=== PATIENT | female | born 1995 | race Caucasian/White ===

== ENCOUNTER 2021-01-17 10:10 | Inpatient (IN) ==
[2021-01-17 11:10] LABS: Creatinine Urine Random 27.7 mg/dl; Protein Creatinine Ratio Urine 0.4 (0-0.2); Total Protein Urine Random 10.2 mg/dl (0-11.9)
[2021-01-17] MEDS ORDERED: METOCLOPRAMIDE HCL 10 MG TABLET PO ONE (11:12)
[2021-01-17 11:21] LABS: Basophils # (auto) 0.01 K/uL (0-0.2); Basophils % (auto) 0.1 %; Eosinophils # (auto) 0.01 K/uL (0-0.5); Eosinophils % (auto) 0.1 %; Hematocrit (blood only) 38.5 % (37-47); Hemoglobin 13.5 g/dL (12.0-16.0); Immature Granulocytes # (auto) 0.04 K/uL (0.00-0.02); Immature Granulocytes % (auto) 0.4 %; Lymphocytes # (auto) 1.49 K/uL (1.2-3.4); Lymphocytes % (auto) 13.5 %; Mean Corpuscular Hemoglobin 30.7 pg (25-34); Mean Corpuscular Hgb Conc 35.1 g/dL (32-36); Mean Corpuscular Volume 87.5 fL (80-100); Mean Platelet Volume 11.3 fL (7.4-10.4); Monocytes # (auto) 0.93 K/uL (0.11-0.59); Monocytes % (auto) 8.4 %; Neutrophils # (auto) 8.53 K/uL (1.4-6.5); Neutrophils % (auto) 77.5 %; Platelet Count 115 K/uL (130-400); RDW Standard Deviation 45.2 fL (36.4-46.3); White Blood Count 11.01 K/uL (4.8-10.8)
--- NOTE | 2021-01-17 11:22 | History & Physical Report ---
Date of Service January 17, 2021 Assessment & Plan (1) Elevated blood pressure affecting in third trimester, antepartum: Plan: 25yo here for BP with 3 instances elevated BP in past week with 2 day headache. -ordered CBC, CMP, Urine Protein/Creatinine ratio -continuous monitor of BP -monitor status with tocometer and US History of Present Illness Chief Complaint: BP monitoring Primary Care Provider: Gavin Hubbard 25yo Female at 37 2/7 weeks presents to hospital for BP monitoring. PMH kuldeep jean marie. She has been complaining of a headache for past 2 days, described as constant pulsating at her forehead rated 5/10, tylenol rest do not help light makes it worse feels different from her previous migraines, which have not occured since started. She also describes black spots in her vision when moving to sit or stand. She notes pain in her RUQ but states that has been ongoing through her and is unchanged. She notes swelling b/l of hands and feet ongoing throughout , unchanged. She states she feels movement, denies any bloody discharge, denies contractions. 2 days ago she was seen in clinic, found elevated BP at 172/108 repeat 140/100 sent to hospital CMP and CBC normal sent home. Today her checked her BP found 128/29, was seen at clinic who sent them to hospital for monitoring. Her UA was negative for protein. Allergies Allergy/AdvReac Type Severity Reaction Status Date / Time latex Allergy Rash Verified 01/17/21 09:19 Home Medications Medication Instructions Recorded Confirmed Type prenat.vits,dariela,lpi-yrif-etibh 1 tab PO DAILY 11/24/19 01/17/21 History omeprazole magnesium 20 mg 20 mg PO DAILY 01/15/21 01/17/21 History tablet,delayed release (Prilosec OTC) acetaminophen 500 mg capsule 1,000 mg PO Q8 PRN 01/17/21 01/17/21 History Patient History Surgical History (Updated 01/15/21 @ 10:58 by Kayla Fernandez RN) H/O removal of cyst on tongue as a child H/O wisdom tooth extraction (~02/04/17) Family History Mother Kidney stones Grandmother (Paternal) Hypertension Social History (Updated 01/15/21 @ 11:01 by Kayla Fernandez RN) Smoking Status: Never smoker Hx Alcohol Use: No Hx Substance Use: No Preferred Language: Kinyarwanda Communication Ability: Effective Visual Impairment: No Limitations Hearing Ability: Normal Payment Analyst Required: No Beliefs That Will Affect Care: None marital status: marital status details: Jack (25) [phone] Current Living Situation: Spouse Current Living Situation Comment: Lives with and dog current occupational status: employed current occupation: [employer] Other Information That Helps Us Care for You: No Feels Safe at Home: Yes Safety Concerns: Feels Safe At This Time caffeine: No Dental Care, Regularly: Yes Do you think of yourself as: straight/heterosexual Gender Identity: Female Assistive Devices: None OB History Review of Systems positive headache, changes in vision with position light sensitivity, swelling of hands and feet negative fever chills dizziness LOC unsteady gait nausea vomitting diarrhea constipation SOB palpitations chest pain dysuria hematuria vaginal discharge, rash Physical Exam Physical Exam: General: well appearing, age appropriate cooperative Heart: RRR, +s1 s2, no murmurs/rubs/gallops Lungs: cta b/l, no wheezes/rales rhonchi Extremities: edema b/l of hands and feet Results & Data ([facility]) Vital Signs (Past 12 Hours) Vital Signs Temp Pulse Resp BP 01/17/21 10:46 111 H 133/82 01/17/21 10:41 114 H 127/86 01/17/21 10:38 104 H 133/90 01/17/21 10:31 37 C 108 H 20 138/84 01/17/21 10:27 114 H 141/84 H 01/17/21 10:21 107 H 128/83 01/17/21 10:16 100 H 125/82 Laboratory Results 01/17/21 Range/Units 10:05 Ur Random Creatinine 27.7 mg/dl U Random Total Protein 10.2 (0-11.9) mg/dl Protein/Creatinin Ratio 0.4 H (0-0.2) Monitoring External Monitor FHR 140's moderate variability reassuring Tocodynamometer occasional contractions every 4-7min Supervising Physician Co-Signing Physician Notes Resident Physician Supervision Note: I was present with Dr. Mendoza during the history and exam. I discussed the case with the resident and agree with the findings and plan as documented in the note. Any exceptions or clarifications are listed here: 25 y/o G1 at 37 2/7 wga presented to L&D from clinic for BP monitoring. Had mild range BPs in clnic on Thursday and was sent to L&D for BP monitoring where labs were normal, BP initially mild but also normalized as well. Presented to clinic today for BP check and was normal however noted mild PATEL and stated that her BP had diastolic of 90s this AM so was recommended for evaluation. On L&D, again notes mild PATEL and intermittent floaters but nothing currently. Denies cp, sob, RUQ/epigastric pain. +FM; denies regular ctx, LOF, VB. BP initially normal, did then have 2 mild range BPs. EFM 135/mod/+accel/-decel, toco irreg. CBC was normal though platelets slightly downtrended to 115 from 130, CMP wnl however UP:C was 0.4. Given UPC and mild range BPs >4hrs apart, pt would meet criteria for pre-eclampsia w/o SF and so recommended for delivery. BSUS demonstrated vertex position, SVE c/l/h. Reglan was given for PTAEL with minimal improvement. Will allow small meal as this may help with PATEL and will order fioricet. Plan to start IOL with tee bulb but if cannot place will use cytotec. Pt and amenable to plan. Ample time given for questions, answered to apparent satisfaction Documented By: Lillie Nichols MD Resident Activity Tracking Resident Involvement: Resident Care Provided Care Provided: OB Delivery
[2021-01-17 11:47] LABS: Albumin Level 2.8 gm/dl (3.4-5.0); BUN Creatinine Ratio 16.6 (10-20); Calcium 8.5 mg/dl (8.5-10.1); Creatinine Clr Calc Pharmacy 139.9 ml/min; Est GFR (African American) 149.5 ml/min; Potassium 3.9 mmol/L (3.5-5.1)
[2021-01-17 11:50] LABS: Albumin Globulin Ratio 0.7 (0.9-2); Bilirubin,Total 0.5 mg/dl (0.2-1); Globulin 3.9 gm/dl (2.5-4.0); Total Protein 6.7 gm/dl (6.4-8.2)
[2021-01-17] MEDS ORDERED: OXYTOCIN 30 UNITS/500 ML BAG IV PRN ×2 (12:48→14:27)
[2021-01-17] MEDS ORDERED: BUTALBITAL/ACETAMIN/CAFFEINE TAB PO ONE (13:00)
--- NOTE | 2021-01-17 14:31 | Labor Progress Brief Note ---
Date of Service January 17, 2021 Subjective PATEL improving after food and fioricet. Discussed tee bulb placement. Pt also notes that she is feeling her ctx more Assessment & Plan (1) Pre-eclampsia: Plan: 25 y/o G1 at 37 2/7 wga admitted w/ new dx of pre-eclampsia w/o SF VSS, BPs ok now Fetus cat 1 Labor - 35cc tee bulb placed after verbal consent obtained following review of risks vs benefits. Will start pit as well GBS neg Epidural PRN Admission and Anticipated Discharge Date Admission Date: January 17, 2021 Physical Exam Genitourinary: OB Exam Abdomen: + vertex Manual OB Exam: + cervical dilation 1 cm, + cervical effacement 50% and + station high OB Exam Monitor Tracing: + external FHT monitor used, + external uterine monitor used (q4) and + category I (135/mod/+accel/-decel) Results & Data ([facility]) Vital Signs (Past 12 Hours) Vital Signs Temp Pulse Resp BP 01/17/21 14:13 117 H 117/77 01/17/21 12:07 85 133/83 01/17/21 11:52 97 H 128/83 01/17/21 11:37 94 H 132/84 01/17/21 11:23 88 20 128/80 01/17/21 11:07 93 H 125/78 01/17/21 10:46 111 H 133/82 01/17/21 10:41 114 H 127/86 01/17/21 10:38 104 H 133/90 01/17/21 10:31 98.6 F 108 H 18 138/84 01/17/21 10:27 114 H 141/84 H 01/17/21 10:21 107 H 128/83 01/17/21 10:16 100 H 125/82 01/17/21 10:10 108 H 20 129/81 Coding Level of Care Code None Diagnoses Pre-eclampsia O14.90
[2021-01-17] MEDS: LACTATED RINGER'S 1,000 ML IV PRN ×2 (14:33→22:11)
[2021-01-17 19:41] LABS: Hematocrit (blood only) 38.5 % (37-47); Hemoglobin 13.5 g/dL (12.0-16.0); Mean Corpuscular Hemoglobin 30.8 pg (25-34); Mean Corpuscular Hgb Conc 35.1 g/dL (32-36); Mean Corpuscular Volume 87.9 fL (80-100); Mean Platelet Volume 11.7 fL (7.4-10.4); Platelet Count 111 K/uL (130-400); RDW Standard Deviation 45.6 fL (36.4-46.3); Red Blood Count 4.38 M/uL (4.2-5.4); White Blood Count 11.69 K/uL (4.8-10.8)
--- NOTE | 2021-01-17 20:41 | Labor Progress Brief Note ---
Date of Service January 17, 2021 Subjective Noting back pain, some cramping Assessment & Plan (1) Pre-eclampsia: Plan: 25 y/o G1 at 37 2/7 wga admitted w/ pre-eclampsia w/o SF VSS Fetus cat 1 Labor - tee bulb in place, continue pit GBS neg Epidural PRN Admission and Anticipated Discharge Date Admission Date: January 17, 2021 Physical Exam Genitourinary: Manual OB Exam: + cervical dilation (2-3 with tee bulb), + cervical effacement 50% and + station high OB Exam Monitor Tracing: + external FHT monitor used, + external uterine monitor used (q4) and + category I (145/mod/+accel/-decel) Results & Data ([facility]) Vital Signs (Past 12 Hours) Vital Signs Temp Pulse Resp BP 01/17/21 19:59 92 H 131/78 01/17/21 19:15 98.4 F 18 01/17/21 18:59 105 H 123/83 01/17/21 18:01 104 H 20 128/84 01/17/21 17:00 100 H 20 121/76 01/17/21 15:50 101 H 20 146/68 H 01/17/21 15:33 93 H 129/83 01/17/21 15:18 100 H 129/74 01/17/21 15:03 101 H 133/76 01/17/21 14:48 98.6 F 90 20 131/74 01/17/21 14:13 117 H 117/77 01/17/21 12:07 85 133/83 01/17/21 11:52 97 H 128/83 01/17/21 11:37 94 H 132/84 01/17/21 11:23 88 20 128/80 01/17/21 11:07 93 H 125/78 01/17/21 10:46 111 H 133/82 01/17/21 10:41 114 H 127/86 01/17/21 10:38 104 H 133/90 01/17/21 10:31 98.6 F 108 H 18 138/84 01/17/21 10:27 114 H 141/84 H 01/17/21 10:21 107 H 128/83 01/17/21 10:16 100 H 125/82 01/17/21 10:10 108 H 20 129/81 Coding Level of Care Code None Diagnoses Pre-eclampsia O14.90
[2021-01-17] MEDS ORDERED: ACETAMINOPHEN 500 MG TAB PO STA (23:08)
[2021-01-17] MEDS ORDERED: ACETAMINOPHEN 500 MG TAB ONE (23:11)
[2021-01-18] MEDS ORDERED: Nursing to Pharmacy Communication SCH (03:30)
[2021-01-18] MEDS ORDERED: LIDOCAINE 1% LOCAL 20 ML VIAL ONE (03:47)
[2021-01-18] MEDS: LACTATED RINGER'S 1,000 ML IV PRN ×3 (06:16→11:39)
--- NOTE | 2021-01-18 07:00 | Labor Progress Brief Note ---
Date of Service January 18, 2021 Subjective Bouncing on ball helping w/ back pain, does note contractions Assessment & Plan (1) Pre-eclampsia: Plan: 25 y/o G1 at 37 3/7 wga admitted w/ pre-eclampsia w/o SF VSS Fetus cat 1 Labor - continue pit, s/p tee bulb GBS neg Epidural PRN Admission and Anticipated Discharge Date Admission Date: January 17, 2021 Physical Exam Genitourinary: Manual OB Exam: + cervical dilation 3 cm, + cervical effacement 80% and + station -2 OB Exam Monitor Tracing: + external FHT monitor used, + external uterine monitor used (q3) and + category I (140/mod/+accel/-decel) Results & Data ([facility]) Vital Signs (Past 12 Hours) Vital Signs Temp Pulse Resp BP 01/18/21 06:35 18 01/18/21 05:52 100 H 129/82 01/18/21 05:03 101 H 121/80 01/18/21 04:55 18 01/18/21 03:59 70 133/78 01/18/21 03:23 93 H 123/83 01/18/21 02:22 99.0 F 18 01/18/21 02:15 18 01/18/21 02:00 95 H 131/73 01/18/21 01:01 81 138/78 01/18/21 00:00 87 120/67 01/17/21 23:15 98.6 F 18 01/17/21 23:00 88 127/79 01/17/21 21:59 96 H 122/80 01/17/21 21:41 100 H 130/81 01/17/21 19:59 92 H 131/78 01/17/21 19:15 98.4 F 18 Coding Level of Care Code None Diagnoses Pre-eclampsia O14.90
--- NOTE | 2021-01-18 09:18 | Labor Progress Brief Note ---
Date of Service January 18, 2021 Subjective Patient note pain increased with ctx, last ctx 8/10 pain. no rom. no vb. Assessment & Plan (1) Pre-eclampsia: (2) Encounter for induction of labor: Plan: good cx change. offered arom but given her pain she would like epidural. ok to plan arom after comfortable from epidural. fhts categ 1. patient aware i am taking over care. preeclampsia without severe features is her dx. Admission and Anticipated Discharge Date Admission Date: January 17, 2021 Physical Exam Constitutional: WD/WN, vitals as above Genitourinary: Manual OB Exam: + cervical dilation 5 cm, + cervical effacement 90% and + station -2 OB Exam Monitor Tracing: + external FHT monitor used, + external uterine monitor used (q2), + category I and + normal FHT variability pit at 18 Results & Data ([facility]) Vital Signs (Past 12 Hours) Vital Signs Temp Pulse Resp BP 01/18/21 08:28 94 H 20 131/85 01/18/21 07:02 98.4 F 88 20 133/75 01/18/21 06:35 18 01/18/21 05:52 100 H 129/82 01/18/21 05:03 101 H 121/80 01/18/21 04:55 18 01/18/21 03:59 70 133/78 01/18/21 03:23 93 H 123/83 01/18/21 02:22 99.0 F 18 01/18/21 02:15 18 01/18/21 02:00 95 H 131/73 01/18/21 01:01 81 138/78 01/18/21 00:00 87 120/67 01/17/21 23:15 98.6 F 18 01/17/21 23:00 88 127/79 01/17/21 21:59 96 H 122/80 01/17/21 21:41 100 H 130/81 Coding Level of Care Code None Diagnoses Pre-eclampsia O14.90 Encounter for induction of labor Z34.90
[2021-01-18] MEDS ORDERED: ePHEDrine sulfate 50 MG/ML AMP ONE (09:19)
[2021-01-18] MEDS ORDERED: SODIUM CHLORIDE 0.9% INJ 10 ML VIAL ONE (09:19)
[2021-01-18] MEDS ORDERED: fentaNYL 2MCG/ML ROPIVACAINE 1.25MG/ML 100 ML BAG EPI ONE (09:20)
[2021-01-18] MEDS ORDERED: BUPIVACAINE 0.25% 30 ML VIAL ONE (09:20)
[2021-01-18] MEDS ORDERED: fentaNYL citrate 100 MCG/2 ML VIAL ONE (09:20)
[2021-01-18] MEDS ORDERED: diphenhydrAMINE 50 MG/ML VIAL IV PRN (09:47)
[2021-01-18] MEDS ORDERED: fentaNYL 2MCG/ML ROPIVACAINE 1.25MG/ML 100 ML BAG EPI PRN (09:47)
[2021-01-18] MEDS ORDERED: ONDANSETRON INJ 2 MG/ML 2 ML VIAL IV PRN (09:47)
[2021-01-18] MEDS ORDERED: ePHEDrine sulfate 50 MG/ML AMP IV PRN (09:47)
[2021-01-18] MEDS ORDERED: NALOXONE HCL 1 MG in SODIUM CHLORIDE 0.9% 1000ML 1,000 ML IV PRN (09:47)
[2021-01-18] MEDS ORDERED: NALBUPHINE HCL INJ 10 MG/ML AMP IV PRN (09:47)
[2021-01-18] MEDS ORDERED: NALOXONE HCL 0.4 MG/1 ML VIAL/CARP IV PRN (09:47)
--- NOTE | 2021-01-18 10:02 | Anesthesiology Consultation ---
Date of Service January 18, 2021 Assessment & Plan (1) Encounter for pre-operative examination: Chart Review Chart Review: Patient NOT seen in Pre Admission Testing and Acceptable Risk for Labor Epidural Consults Requested none History Height/Weight Height: 5 ft 3 in Weight: 69.49 kg Allergies Allergy/AdvReac Type Severity Reaction Status Date / Time latex Allergy Mild Rash Verified 01/17/21 15:21 Medications Home Medications Medication Instructions Recorded Confirmed Last Taken prenat.vits,dariela,yth-rpck-vsixs 1 tab PO DAILY 11/24/19 01/17/21 01/17/21 07:30 omeprazole magnesium 20 mg 20 mg PO DAILY 01/15/21 01/17/21 01/17/21 07:30 tablet,delayed release (Prilosec OTC) acetaminophen 500 mg capsule 1,000 mg PO Q8 PRN 01/17/21 01/17/21 01/17/21 07:30 Active Medications Generic Name Dose Route Start Last Admin Trade Name Freq PRN Reason Stop Dose Admin Lactated Ringer's 1,000 mls @ 125 mls/hr 01/17/21 12:48 01/18/21 09:10 Lr IV 01/19/21 12:47 999 mls/hr .Q8H PRN Infusion L&D Protocol Protocol Oxytocin 30 units in 500 mls @ 18 mls/hr 01/17/21 14:27 01/18/21 05:50 Pitocin IV 01/19/21 14:26 1.08 units/hr .Q24H PRN 18 mls/hr Labor Induction/Augmentation Titration Protocol 1.08 UNITS/HR Exercise / Class Metabolic Activity II 4-5 Yardwork/Stairs/Walk up hill Past Family History Family History Mother Kidney stones Grandmother (Paternal) Hypertension Past Surgical History Surgical History H/O removal of cyst on tongue as a child H/O wisdom tooth extraction (~02/04/17) Past Anesthesia History No Hx of Anesthesia Complications and No Family Hx of Anesthesia Complications History of PONV No Hx of PONV and No Hx of Motion Sickness Social History Smoking Status: Never smoker Hx Alcohol Use: No Hx Substance Use: No substance use type: does not use Physical Exam Vital Signs Last Vital Signs Temp 36.9 C 01/18/21 07:02 Pulse 94 H 01/18/21 08:28 Resp 20 01/18/21 08:28 BP 131/85 01/18/21 08:28 Testing Laboratory Results 01/17/21 19:33 01/17/21 11:11
--- NOTE | 2021-01-18 11:25 | Labor Progress Brief Note ---
Date of Service January 18, 2021 Subjective strip review, updated by nurse that pitocin off after late decels, she was evaluated by Dr. Guallpa and still 5cm. srom before her epidural apparently. Assessment & Plan (1) Encounter for induction of labor: (2) Pre-eclampsia: Plan: will keep pit off x about 30min for inutero resuscitation and if stable restart pit at 1 and increase to regular pattern. fhts currently improved. categ 1. Admission and Anticipated Discharge Date Admission Date: January 17, 2021 Physical Exam Genitourinary: OB Exam Monitor Tracing: + external FHT monitor used (150 mod variability, last ctx with early decel? ), + external uterine monitor used (q5), + normal FHT variability, + early decelerations present and + late decelerations present (previously noted. ) Pitocin off Results & Data ([facility]) Vital Signs (Past 12 Hours) Vital Signs Temp Pulse Resp BP Pulse Ox 01/18/21 11:18 93 H 100 01/18/21 11:13 92 H 125/73 100 01/18/21 11:08 95 H 100 01/18/21 11:03 100 H 100 01/18/21 10:59 93 H 123/76 01/18/21 10:58 95 H 100 01/18/21 10:53 98.4 F 97 H 20 100 01/18/21 10:48 115 H 100 01/18/21 10:44 130 H 110/66 01/18/21 10:43 117 H 99 01/18/21 10:38 98 H 99 01/18/21 10:33 86 98 01/18/21 10:28 85 98 01/18/21 10:27 89 117/75 01/18/21 10:25 83 121/76 01/18/21 10:23 88 125/75 97 01/18/21 10:21 88 120/75 01/18/21 10:19 86 125/75 01/18/21 10:18 83 98 01/18/21 10:17 86 125/72 01/18/21 10:15 81 127/70 01/18/21 10:13 92 H 136/78 97 01/18/21 10:11 89 128/78 01/18/21 10:09 100 H 132/81 01/18/21 10:08 88 97 01/18/21 10:07 98 H 133/82 01/18/21 10:05 97 H 130/84 01/18/21 10:03 87 141/86 H 97 01/18/21 10:01 112 H 143/84 H 01/18/21 09:59 120 H 148/76 H 01/18/21 09:58 123 H 97 01/18/21 09:53 115 H 97 01/18/21 08:28 94 H 20 131/85 01/18/21 07:02 98.4 F 88 20 133/75 01/18/21 06:35 18 01/18/21 05:52 100 H 129/82 01/18/21 05:03 101 H 121/80 01/18/21 04:55 18 01/18/21 03:59 70 133/78 01/18/21 03:23 93 H 123/83 01/18/21 02:22 99.0 F 18 01/18/21 02:15 18 01/18/21 02:00 95 H 131/73 01/18/21 01:01 81 138/78 01/18/21 00:00 87 120/67 Coding Level of Care Code None Diagnoses Encounter for induction of labor Z34.90 Pre-eclampsia O14.90
--- NOTE | 2021-01-18 12:49 | Labor Progress Brief Note ---
Date of Service January 18, 2021 Subjective pt comfortable with epidural Assessment & Plan (1) Pre-eclampsia: (2) Encounter for induction of labor: Plan: good c x change. fhts now categ 1 and see if iupc shows adeq mvu's. if not, plan to restart pit and titrate to adequate mvus. Admission and Anticipated Discharge Date Admission Date: January 17, 2021 Physical Exam Genitourinary: OB Exam Monitor Tracing: + external FHT monitor used (+scalp stim response), + external uterine monitor used (irreg), + category I, + normal FHT variability and + early decelerations present IUPC placed. Results & Data ([facility]) Vital Signs (Past 12 Hours) Vital Signs Temp Pulse Resp BP Pulse Ox 01/18/21 12:08 94 H 100 01/18/21 12:03 92 H 99 01/18/21 11:58 106 H 129/87 100 01/18/21 11:53 101 H 100 01/18/21 11:48 88 100 01/18/21 11:44 98.4 F 85 20 130/77 01/18/21 11:43 82 100 01/18/21 11:38 92 H 100 01/18/21 11:33 91 H 100 01/18/21 11:28 83 136/79 100 01/18/21 11:23 84 100 01/18/21 11:18 93 H 100 01/18/21 11:13 92 H 125/73 100 01/18/21 11:08 95 H 100 01/18/21 11:03 100 H 100 01/18/21 10:59 93 H 123/76 01/18/21 10:58 95 H 100 01/18/21 10:53 98.4 F 97 H 20 100 01/18/21 10:48 115 H 100 01/18/21 10:44 130 H 110/66 01/18/21 10:43 117 H 99 01/18/21 10:38 98 H 99 01/18/21 10:33 86 98 01/18/21 10:28 85 98 01/18/21 10:27 89 117/75 01/18/21 10:25 83 121/76 01/18/21 10:23 88 125/75 97 01/18/21 10:21 88 120/75 01/18/21 10:19 86 125/75 01/18/21 10:18 83 98 01/18/21 10:17 86 125/72 01/18/21 10:15 81 127/70 01/18/21 10:13 92 H 136/78 97 01/18/21 10:11 89 128/78 01/18/21 10:09 100 H 132/81 01/18/21 10:08 88 97 01/18/21 10:07 98 H 133/82 01/18/21 10:05 97 H 130/84 01/18/21 10:03 87 141/86 H 97 01/18/21 10:01 112 H 143/84 H 01/18/21 09:59 120 H 148/76 H 01/18/21 09:58 123 H 97 01/18/21 09:53 115 H 97 01/18/21 08:28 94 H 20 131/85 01/18/21 07:02 98.4 F 88 20 133/75 01/18/21 06:35 18 01/18/21 05:52 100 H 129/82 01/18/21 05:03 101 H 121/80 01/18/21 04:55 18 01/18/21 03:59 70 133/78 01/18/21 03:23 93 H 123/83 01/18/21 02:22 99.0 F 18 01/18/21 02:15 18 01/18/21 02:00 95 H 131/73 01/18/21 01:01 81 138/78 Coding Level of Care Code None Diagnoses Pre-eclampsia O14.90 Encounter for induction of labor Z34.90
--- NOTE | 2021-01-18 15:41 | Delivery Summary ---
Vaginal Delivery Summary Date of Service January 18, 2021 Vaginal Delivery Summary The patient dilated to complete and pushed to deliver a viable male Apgars 8 and 9 via over intact perineum. Mouth and nose bulb suctioned at perineum. Loose nuchal x 1 reduced with ease. Shoulders and body delivered with ease. Infant was vigorous and crying at . Cord clamped at 20 seconds of life and infant to maternal abdomen where the cord was then doubly clamped and cut. Placenta delivered spontaneously and intact, three-vessel cord. Hemostasis achieved with dilute pitocin and uterine massage. Cervix and sulci intact. EBL 300 cc. Mother and baby stable recovery. [facility] Vaginal Delivery Charge Vaginal Delivery Codes: 74917 global code for the antepartum, delivery, and post- Delivery Type Details:
[2021-01-18] MEDS ORDERED: OXYTOCIN 20 UNITS in LACTATED RINGER'S 1,000 ML IV SCH (15:45)
[2021-01-18] MEDS ORDERED: OXYTOCIN 30 UNITS/500 ML BAG IV PRN (15:54)
[2021-01-18] MEDS ORDERED: HYDROCORTISONE ACETATE 25 MG SUPP PR PRN (15:54)
[2021-01-18] MEDS ORDERED: BENZOCAINE 20% AER SPR 82.5 GM CAN EXT PRN (15:54)
[2021-01-18] MEDS ORDERED: ACETAMINOPHEN 325 MG TAB PO PRN (15:54)
[2021-01-18] MEDS ORDERED: bisacodyL 10 MG SUPP PR PRN (15:54)
[2021-01-18] MEDS ORDERED: SUPERCREAM 0.870% 15 GM JAR EXT PRN (15:54)
--- NOTE | 2021-01-18 18:02 | Anesthesia Procedure Note ---
Date of Service January 18, 2021 Anesthesia Post Epidural Note Vital Signs Vital Signs: Temp Pulse Resp BP Pulse Ox 37.4 C 109 H 18 119/69 97 01/18/21 15:39 01/18/21 17:54 01/18/21 14:54 01/18/21 17:54 01/18/21 15:38 Pain Intensity Abdomen: Pain Intensity: 2 Notes Mental Status: alert / awake / arousable and participated in evaluation Patient Amnestic to Procedure: No Nausea / Vomiting: adequately controlled Pain: adequately controlled Airway Patency, RR, SpO2: stable & adequate BP & HR: stable & adequate Hydration State: stable & adequate Neuraxial Anesthesia: was administered and sensory block is resolving Anesthetic Complications: no major complications apparent and Pt Satisfied with anesthetic care Epidural: Removed without complications and With tip intact
[2021-01-18] MEDS: IBUPROFEN 600 MG TAB PO PRN (19:41)
[2021-01-18] MEDS: DOCUSATE SODIUM 100 MG CAP PO SCH (21:12)
[2021-01-19 06:43] LABS: Hematocrit (blood only) 35.4 % (37-47); Hemoglobin 12.3 g/dL (12.0-16.0); Mean Corpuscular Hemoglobin 31.1 pg (25-34); Mean Corpuscular Hgb Conc 34.7 g/dL (32-36); Mean Corpuscular Volume 89.4 fL (80-100); Mean Platelet Volume 11.2 fL (7.4-10.4); Platelet Count 117 K/uL (130-400); RDW Coefficient of Variation 14.3 % (11.5-14.5); RDW Standard Deviation 47.3 fL (36.4-46.3); Red Blood Count 3.96 M/uL (4.2-5.4); White Blood Count 12.26 K/uL (4.8-10.8)
--- NOTE | 2021-01-19 07:40 | Obstetrical Progress Note ---
Date of Service <Nadja Mendoza DO - Last Filed: 01/19/21 07:40> January 19, 2021 Assessment & Plan <Nadja Mendoza - Last Filed: 01/19/21 07:40> (1) Encounter for care and examination after delivery: 25 yo post op day1 from with preeclampsia, doing well. -Continue routine post care. -vital signs reviewed and WNL (Tmax 36.6) -Blood Type A+, GBS-, Rubella immune -Encourage ambulation, monitor and control pain with Motrin, tylenol PRN, resume regular diet, monitor lochia -encourage breast feeding -hemoglobin 12.3 Day #:: 1 <Deedee Reyes MD, FACOG - Last Filed: 01/19/21 07:55> (1) Encounter for care and examination after delivery: Subjective <Nadja Mendoza - Last Filed: 01/19/21 07:40> Ambulation: ambulating normally Voiding: no voiding problems Passing Gas:: No Diet Tolerance:: regular diet Lochia:: Small Feeding Type:: breast feeding Current Pain Level(1-10): 0 (pain well controlled on medication) Review of Systems Denies fever, chills, sweats Denies shortness of breath, difficulty breathing, chest pain, palpitations, chest pressure. Denies breast pain. Denies dysuria. Denies headache or changes in vision. Physical Exam <Nadja Mendoza - Last Filed: 01/19/21 07:40> General: Alert, oriented. No acute distress. Cardiac: Regular rate and rhythm, no murmurs/rubs/gallops. Respiratory: Clear to auscultation bilaterally a/p, no wheezes/rales/rhonchi. No increased work of breathing. Symmetrical chest rise. No respiratory distress. Abdomen: Soft, nontender, nondistended. Bowel sounds present. Uterus: Uterine fundus firm, palpable 2 cm below umbilicus. Lower Extremities: No lower extremity edema or swelling. No deep calf pain. Srikanth's negative bilaterally.. Results & Data ([facility]) <Nadja Mendoza - Last Filed: 01/19/21 07:40> Vital Signs (Past 12 Hours) Vital Signs Temp Pulse Resp BP 08/07/21 04:00 36.6 C 73 16 121/84 01/19/21 01:08 36.8 C 85 16 106/69 01/18/21 21:15 90 123/75 Laboratory Results 01/19/21 Range/Units 06:25 WBC 12.26 H (4.8-10.8) K/uL RBC 3.96 L (4.2-5.4) M/uL Hgb 12.3 (12.0-16.0) g/dL Hct 35.4 L (37-47) % MCV 89.4 (80-100) fL MCH 31.1 (25-34) pg MCHC 34.7 (32-36) g/dL RDW Std Deviation 47.3 H (36.4-46.3) fL RDW Coeff of Viktor 14.3 (11.5-14.5) % Plt Count 117 L (130-400) K/uL MPV 11.2 H (7.4-10.4) fL Medications Administered Current Inpatient Medications Acetaminophen (Acetaminophen 325 Mg Tab) 650 mg PO Q6H PRN PRN Reason: Pain/PATEL/Fever Stop: 02/17/21 15:53 Benzocaine (Benzocaine 20% Aer Spr 82.5 Gm Can) 1 appln EXT PRN PRN PRN Reason: Perineal Discomfort Stop: 02/17/21 15:53 Bisacodyl (Bisacodyl 5 Mg Tabec) 5 mg PO 1999 [facility] Stop: 01/19/21 20:01 Bisacodyl (Bisacodyl 10 Mg Supp) 10 mg [place] DAILY PRN PRN Reason: No BM on 2nd post- day Stop: 02/17/21 15:53 Cocaine HCl (Supercream 0.870% 15 Gm Jar) 1 gm EXT BID PRN PRN Reason: Hemorrhoidal Inflammation Stop: 02/01/21 15:53 Diphtheria/Pertussis/Tetanus Vacc (Diphtheria/Tetanus/Pertussis 0.5 Ml Syr/Vial) 0.5 ml IM .ONCE ONE Stop: 01/19/21 09:01 Docusate Sodium (Docusate Sodium 100 Mg Cap) 100 mg PO DAILY@ [facility] Stop: 02/17/21 20:59 Last Admin: 01/18/21 21:12 Dose: 100 mg Documented by: Hydrocortisone (Hydrocortisone Acetate 25 Mg Supp) 25 mg [place] BID PRN PRN Reason: Hemorrhoidal Inflammation Stop: 02/17/21 15:53 Oxytocin 20 units/ Lactated (Ringer's) 1,002 mls @ 125 mls/hr IV .Q8H1M [facility] Stop: 02/17/21 15:44 Last Infusion: 01/19/21 00:03 Dose: Infused Documented by: Oxytocin (Pitocin) 30 units in 500 mls @ 333.333 mls/hr IV .Q1H30M PRN; Protocol PRN Reason: Bleeding Control Stop: 02/17/21 15:53 Ibuprofen (Ibuprofen 600 Mg Tab) 600 mg PO Q4H PRN PRN Reason: Pain/PATEL/Cramping/Fever Stop: 02/17/21 15:53 Last Admin: 01/18/21 19:41 Dose: 600 mg Documented by: Mayte Multivit/[place]/Iron/Folic Ac ( Vitamin 1 Tab) 1 tab PO DAILY@08 [facility] Stop: 02/18/21 07:59 <Deedee Reyes MD, FACOG - Last Filed: 01/19/21 07:55> Co-Signing Physician Notes Resident Physician Supervision Note: I was present with Dr. Mendoza during the history and exam. I discussed the case with the resident and agree with the findings and plan as documented in the note. Any exceptions or clarifications are listed here: Patient doing well. Denies concerns. Breast feeding. No issues with bleeding. Hgb was repeated today and normal and plts 117 stable. abd soft ff 2 down nt, nt calves. ppd #1 routine care s/p after induction for preeclampsia. no evidence of elevated bps. breast, rh pos, ri. No further labs indicated at this time. Documented By: Deedee Reyes MD, FACOG Resident Activity Tracking <Nadja Mendoza DO - Last Filed: 01/19/21 07:40> Resident Involvement: Resident Care Provided Care Provided: OB Delivery
[2021-01-19] MEDS: DOCUSATE SODIUM 100 MG CAP PO SCH ×2 (08:55→19:39)
[2021-01-19] MEDS: PRENATAL VITAMIN 1 TAB PO SCH (08:55)
[2021-01-19] MEDS ORDERED: DIPHTHERIA/TETANUS/PERTUSSIS 0.5 ML SYR/VIAL IM ONE (09:00)
[2021-01-19] MEDS ORDERED: bisacodyL 5 MG TABEC PO SCH (20:00)
--- NOTE | 2021-01-19 23:26 | Obstetrical Progress Note ---
Date of Service January 19, 2021 Assessment & Plan (1) Severe pre-eclampsia, condition or complication: Start magnesium infusion for severe features, as her preeclampsia now includes visual disturbance and hyperreflexia. The elevated BP has not yet been charted and the last recorded BP in [facility] at this moment was normal, but in reality they are now trending up. I/O discussed with patient; she states she is still voiding normal amounts / clear, will use hat rather than tee if possible while on mag. Needs IV access re-established and is agreeable. Understands likely will extend LOS. Subjective I was called by RN to notify me that patient's BP has elevated to 136/96 (not yet charted at this time) and patient is c/o double vision. She noted that the double vision began when she stood up, but it did NOT resolve when she sat back down, and has now persisted x10 min. The RN also notified me at this time of the patient have c/o PATEL earlier this evening but that resolved with tylenol and was therefore not reported to me until now. I came to the bedside to examine Sharee. She denies current PATEL, but does still c/o blurry double vision without blind spots. She denies N/V, RUQ pain, SOB/CP. She c/o increased swelling in both ankles since this morning, L=R now (though she says the L was more puffy than R earlier). Physical Exam Constitutional WD/WN, vitals as above Respiratory normal respiratory effort and able to speak in complete sentences; no respiratory distress Gastrointestinal (Abdomen) soft, post-gravid, AGA / Nontender Neurologic DTR 3+ / brisk bilateral LEs. No clonus. Genitourinary Lochia remains minimal Lymphatic Bilateral feet with 1+ edema, equal and non-pitting. Results & Data ([facility]) Vital Signs (Past 12 Hours) Vital Signs Temp Pulse Resp BP Pulse Ox 01/19/21 19:30 98.2 F 90 18 125/87 98 01/19/21 15:30 98.2 F 82 18 120/80 98 01/19/21 11:38 97.9 F 94 H 18 127/81 98
[2021-01-19] MEDS ORDERED: MAG SULFATE 4GM BOLUS FROM BAG IV ONE (23:30)
[2021-01-19 23:56] LABS: Hematocrit (blood only) 34.1 % (37-47); Mean Corpuscular Hemoglobin 31.3 pg (25-34); Mean Corpuscular Volume 88.8 fL (80-100); Mean Platelet Volume 10.8 fL (7.4-10.4); Platelet Count 134 K/uL (130-400); RDW Coefficient of Variation 14.4 % (11.5-14.5); RDW Standard Deviation 46.8 fL (36.4-46.3); Red Blood Count 3.84 M/uL (4.2-5.4); White Blood Count 9.14 K/uL (4.8-10.8)
[2021-01-20] MEDS: LACTATED RINGER'S 1,000 ML IV SCH ×2 (00:12→12:51)
[2021-01-20] MEDS: MAGNESIUM SULFATE / WTR 40 GM/1,000 ML BAG IV SCH ×2 (00:12→17:46)
[2021-01-20 00:18] LABS: Alanine Aminotransferase 18 U/L (12-78); Albumin Level 2.4 gm/dl (3.4-5.0); Aspartate Aminotransferase 30 U/L (15-37); BUN Creatinine Ratio 18.8 (10-20); Blood Urea Nitrogen 10 mg/dl (7-18); Calcium 8.2 mg/dl (8.5-10.1); Carbon Dioxide 22 mmol/L (21-32); Chloride 111 mmol/L (98-107); Creatinine Clr Calc Pharmacy 150.2 ml/min; Est GFR (African American) > 150.0 ml/min; Est GFR (Non-African American) 132.1 ml/min; Glucose 71 mg/dl (70-99); Potassium 3.7 mmol/L (3.5-5.1); Sodium 141 mmol/L (136-145); Uric Acid 6.5 mg/dl (2.6-7.2)
[2021-01-20 00:21] LABS: Albumin Globulin Ratio 0.7 (0.9-2); Alkaline Phosphatase 113 U/L (45-117); Bilirubin,Total 0.3 mg/dl (0.2-1); Globulin 3.7 gm/dl (2.5-4.0); Total Protein 6.1 gm/dl (6.4-8.2)
[2021-01-20 00:33] LABS: Mean Corpuscular Hgb Conc 35.2 g/dL (32-36)
[2021-01-20] MEDS: IBUPROFEN 600 MG TAB PO PRN ×2 (03:32→09:14)
--- NOTE | 2021-01-20 07:00 | Obstetrical Progress Note ---
Date of Service January 20, 2021 Assessment & Plan (1) Severe pre-eclampsia, condition or complication: Magnesium IV to continue until 24 hours, d/w patient and FOB this morning. Clinically improved now. Labs done when she felt her worst showed stability with no indications of preeclampsia-related organ damage, possibly only very mild hemolysis (LDH just above 250), so will not repeat at this time. Anticipate stopping mag tonight and D/C tomorrow. Subjective Ambulation: ambulating normally Voiding: no voiding problems Passing Gas:: Yes Diet Tolerance:: regular diet Lochia:: Small Patient moved back to L&D late last night to start magnesium therapy. Notes that at this time she feels "better," her double vision is gone and she no longer has blurring or any PATEL. Denies N/V, CP, SOB. Is eating and drinking. Voiding normally, clear / good volume. Edema improved from last night to now. No upper abdomen pain, still crampy in pelvis, lochia remains small. Physical Exam Constitutional WD/WN, vitals as above Eyes PERRL, conjunctivae normal, anicteric sclerae Neck normal visual inspection Respiratory normal respiratory effort and able to speak in complete sentences; no respiratory distress and no labored breathing Cardiovascular Rate/Rhythm: regular rate and regular rhythm Extremities: no edema Chest (Breasts) Chest: normal inspection of chest Gastrointestinal (Abdomen) Inspection/Auscultation: abdomen normal to inspection Soft, postgravid Neurologic DTR 2+ at bilateral patellae Psychiatric A+Ox3, euthymic affect Genitourinary OB Exam Abdomen: + fundal height Fundus: + firm and + relation to umbilicus (fundus just below umbilicus); not tender Results & Data ([facility]) Vital Signs (Past 12 Hours) Vital Signs Temp Pulse Pulse Resp BP BP Pulse Ox 01/20/21 06:50 95 H 100 01/20/21 06:36 84 99 01/20/21 06:31 79 98 01/20/21 06:26 95 H 98 01/20/21 06:21 72 97 01/20/21 06:16 82 99 01/20/21 06:15 80 14 128/76 01/20/21 06:11 75 97 01/20/21 06:06 75 98 01/20/21 06:01 74 97 01/20/21 05:56 75 98 01/20/21 05:51 74 98 01/20/21 05:46 77 97 01/20/21 05:41 77 98 01/20/21 05:36 75 98 01/20/21 05:31 76 99 01/20/21 05:26 89 99 01/20/21 05:21 74 99 01/20/21 05:16 74 98 01/20/21 05:15 71 14 116/76 01/20/21 05:11 76 98 01/20/21 05:06 80 99 01/20/21 05:01 75 98 01/20/21 04:56 82 98 01/20/21 04:51 77 98 01/20/21 04:46 74 98 01/20/21 04:41 78 98 01/20/21 04:36 73 98 01/20/21 04:31 78 98 01/20/21 04:26 70 98 01/20/21 04:21 78 97 01/20/21 04:16 68 98 01/20/21 04:15 73 16 119/80 01/20/21 04:11 79 98 01/20/21 04:06 68 99 01/20/21 04:01 71 98 01/20/21 03:56 72 98 01/20/21 03:51 72 99 01/20/21 03:46 73 100 01/20/21 03:41 74 100 01/20/21 03:36 75 100 01/20/21 03:31 87 100 01/20/21 03:26 94 H 100 01/20/21 03:19 94 H 100 01/20/21 03:15 98.4 F 89 18 118/73 01/20/21 03:14 71 99 01/20/21 03:09 72 100 01/20/21 03:04 70 100 01/20/21 02:59 71 100 01/20/21 02:54 72 100 01/20/21 02:49 72 100 01/20/21 02:44 72 99 01/20/21 02:39 71 99 01/20/21 02:34 67 98 01/20/21 02:29 68 99 01/20/21 02:24 66 99 01/20/21 02:19 69 100 01/20/21 02:15 65 16 122/77 01/20/21 02:14 66 99 01/20/21 02:09 67 100 01/20/21 02:04 69 99 01/20/21 01:59 72 98 01/20/21 01:54 72 98 01/20/21 01:49 72 98 01/20/21 01:44 74 98 01/20/21 01:39 75 98 01/20/21 01:34 73 98 01/20/21 01:29 71 98 01/20/21 01:24 72 98 01/20/21 01:19 71 98 01/20/21 01:15 16 01/20/21 01:14 71 98 01/20/21 01:11 64 124/68 01/20/21 01:09 73 98 01/20/21 01:04 72 98 01/20/21 00:59 73 99 01/20/21 00:56 75 124/78 01/20/21 00:54 74 100 01/20/21 00:49 77 98 01/20/21 00:44 78 100 01/20/21 00:41 76 123/77 01/20/21 00:39 79 100 01/20/21 00:34 72 100 01/20/21 00:29 82 99 01/20/21 00:26 91 H 133/79 01/20/21 00:24 95 H 99 01/20/21 00:15 85 100 01/20/21 00:12 91 H 18 131/82 01/20/21 00:10 85 100 01/20/21 00:05 89 99 01/20/21 00:00 84 99 01/19/21 23:00 98.2 F 76 18 132/90 99 01/19/21 19:30 98.2 F 90 18 125/87 98
[2021-01-20] MEDS: DOCUSATE SODIUM 100 MG CAP PO SCH (09:14)
[2021-01-20] MEDS: PRENATAL VITAMIN 1 TAB PO SCH (09:15)
[2021-01-21 04:33] VITALS: O2SAT 97
--- NOTE | 2021-01-21 06:46 | Obstetrical Progress Note ---
Date of Service <Nadja RejiDO - Last Filed: 01/21/21 06:46> January 21, 2021 Assessment & Plan <Nadjastacy Mendoza DO - Last Filed: 01/21/21 06:46> (1) Encounter for care and examination after delivery: 25 yo post op day3 from with preeclampsia, doing well. -Continue routine post care. -vital signs reviewed and WNL (Tmax 36.8) -Blood Type A+, GBS-, Rubella immune -Encourage ambulation, monitor and control pain with Motrin, tylenol PRN, resume regular diet, monitor lochia -encourage breast feeding -hemoglobin 12.0 (8) Day #:: 3 <Lakshmi Guallpa MD - Last Filed: 01/21/21 07:52> (1) Encounter for care and examination after delivery: Subjective <Nadja RejiDO - Last Filed: 01/21/21 06:46> Ambulation: ambulating normally Voiding: no voiding problems Passing Gas:: Yes Diet Tolerance:: regular diet Lochia:: Small Feeding Type:: breast feeding Current Pain Level(1-10): 0 (well controlled on medication) Patient was experiencing symptoms of pre-eclampsia change in vision headache, given Magnesium which helped resolve symptoms, Magnesium discontinued last night, patient currently doing well seated at bedside. Review of Systems Denies fever, chills, sweats Denies shortness of breath, difficulty breathing, chest pain, palpitations, chest pressure. Denies breast pain. Denies dysuria. Denies headache or changes in vision. Denies changes in hearing or taste, dizziness Physical Exam <Nadja Mendoza DO - Last Filed: 01/21/21 06:46> General: Alert, oriented. No acute distress. Cardiac: Regular rate and rhythm, no murmurs/rubs/gallops. Respiratory: Clear to auscultation bilaterally a/p, no wheezes/rales/rhonchi. No increased work of breathing. Symmetrical chest rise. No respiratory distress. Abdomen: Soft, nontender, nondistended. Bowel sounds present. Uterus: Uterine fundus soft Lower Extremities: No lower extremity edema or swelling. No deep calf pain. Srikanth's negative bilaterally.. Neuro: CN2-12 intact b/l, intact rapid alternating movement Results & Data ([facility]) <Nadja Mendoza, DO - Last Filed: 01/21/21 06:46> Vital Signs (Past 12 Hours) Vital Signs Temp Pulse Pulse Resp BP BP Pulse Ox 01/21/21 03:30 36.8 C 83 16 136/78 97 01/21/21 00:15 37.0 C 86 20 128/84 98 01/21/21 00:04 88 100 01/20/21 23:59 87 99 01/20/21 23:54 83 100 01/20/21 23:49 71 99 01/20/21 23:44 73 99 01/20/21 23:39 72 98 01/20/21 23:34 76 99 01/20/21 23:29 71 100 01/20/21 23:24 76 99 01/20/21 23:19 73 98 01/20/21 23:15 72 18 124/72 01/20/21 23:14 73 98 01/20/21 23:09 73 99 01/20/21 23:04 72 99 01/20/21 22:59 74 99 01/20/21 22:54 87 99 01/20/21 22:49 75 99 01/20/21 22:44 74 100 01/20/21 22:39 71 99 01/20/21 22:34 69 99 01/20/21 22:29 75 99 01/20/21 22:24 70 100 01/20/21 22:19 71 99 01/20/21 22:15 71 18 116/68 01/20/21 22:14 72 97 01/20/21 22:09 73 98 01/20/21 22:04 72 97 01/20/21 21:59 74 98 01/20/21 21:54 76 98 01/20/21 21:49 74 97 01/20/21 21:44 70 97 01/20/21 21:39 72 98 01/20/21 21:34 72 99 01/20/21 21:29 79 99 01/20/21 21:24 68 98 01/20/21 21:19 73 99 01/20/21 21:15 72 18 117/73 01/20/21 21:14 71 98 01/20/21 21:09 73 99 01/20/21 21:04 75 99 01/20/21 20:59 90 99 01/20/21 20:51 84 99 01/20/21 20:46 84 98 01/20/21 20:41 77 98 01/20/21 20:36 75 98 01/20/21 20:31 73 98 01/20/21 20:26 72 98 01/20/21 20:21 74 99 01/20/21 20:16 77 99 01/20/21 20:15 74 18 118/78 01/20/21 20:11 78 98 01/20/21 20:06 74 99 01/20/21 20:01 87 99 01/20/21 19:56 77 99 01/20/21 19:51 86 98 01/20/21 19:46 77 99 01/20/21 19:41 76 99 01/20/21 19:36 82 99 01/20/21 19:31 76 99 01/20/21 19:26 77 99 01/20/21 19:21 81 99 01/20/21 19:19 37.2 C 79 18 131/82 01/20/21 19:16 81 98 01/20/21 19:15 97 H 142/101 H 01/20/21 19:11 84 100 01/20/21 19:06 89 99 01/20/21 19:01 85 99 01/20/21 18:56 90 99 01/20/21 18:51 89 99 01/20/21 18:46 92 H 100 Medications Administered Current Inpatient Medications Acetaminophen (Acetaminophen 325 Mg Tab) 650 mg PO Q6H PRN PRN Reason: Pain/PATEL/Fever Stop: 02/17/21 15:53 Last Admin: 01/19/21 18:23 Dose: 650 mg Documented by: Benzocaine (Benzocaine 20% Aer Spr 82.5 Gm Can) 1 appln EXT PRN PRN PRN Reason: Perineal Discomfort Stop: 02/17/21 15:53 Bisacodyl (Bisacodyl 10 Mg Supp) [address] DAILY PRN PRN Reason: No BM on 2nd post- day Stop: 02/17/21 15:53 Cocaine HCl (Supercream 0.870% 15 Gm Jar) 1 gm EXT BID PRN PRN Reason: Hemorrhoidal Inflammation Stop: 02/01/21 15:53 Docusate Sodium (Docusate Sodium 100 Mg Cap) 100 mg PO DAILY@ [facility] Stop: 02/17/21 20:59 Last Admin: 01/20/21 09:14 Dose: 100 mg Documented by: Hydrocortisone (Hydrocortisone Acetate 25 Mg Supp) [address] BID PRN PRN Reason: Hemorrhoidal Inflammation Stop: 02/17/21 15:53 Oxytocin 20 units/ Lactated (Ringer's) 1,002 mls @ 125 mls/hr IV .Q8H1M [facility] Stop: 02/17/21 15:44 Last Infusion: 01/19/21 00:03 Dose: Infused Documented by: Oxytocin (Pitocin) 30 units in 500 mls @ 333.333 mls/hr IV .Q1H30M PRN; Protocol PRN Reason: Bleeding Control Stop: 02/17/21 15:53 Lactated Ringer's (Lr) 1,000 mls @ 75 mls/hr IV .[id number] [facility] Stop: 02/19/21 01:14 Last Infusion: 01/21/21 00:12 Dose: 0 mls/hr Documented by: Ibuprofen (Ibuprofen 600 Mg Tab) 600 mg PO Q4H PRN PRN Reason: Pain/PATEL/Cramping/Fever Stop: 02/17/21 15:53 Last Admin: 01/20/21 09:14 Dose: 600 mg Documented by: Prenat Multivit/[place]/Iron/Folic Ac ( Vitamin 1 Tab) 1 tab PO DAILY@08 [facility] Stop: 02/18/21 07:59 Last Admin: 01/20/21 09:15 Dose: 1 tab Documented by: <Lakshmi Guallpa MD - Last Filed: 01/21/21 07:52> Co-Signing Physician Notes Patient feels well this morning, no longer having any PATEL or vision change. Edema improved. BP normal without antihypertensives. Desires d/c home. Instructions reviewed, 1wk short interval BP check arranged. Resident Activity Tracking <Nadja Mendoza DO - Last Filed: 01/21/21 06:46> Resident Involvement: Resident Care Provided Care Provided: OB Delivery
[2021-01-21] MEDS: IBUPROFEN 600 MG TAB PO PRN (08:43)
[2021-01-21] MEDS: DOCUSATE SODIUM 100 MG CAP PO SCH (08:43)
[2021-01-21] MEDS: PRENATAL VITAMIN 1 TAB PO SCH (08:43)
[2021-01-21 09:01] VITALS: BP 129/91; PULSE 79; TEMP 98.6
== END 2021-01-21 11:10 | disposition home or self-care (01) | DRG 807 ==
LOC: OPB 10:10 → 4S1 10:11 → 4S2 01-18 18:37 → 4S1 01-19 23:57 → 4S2 01-21 00:14

== ENCOUNTER 2023-04-23 10:07 | Inpatient (IN) ==
[2023-04-23 11:51] LABS: Basophils # (auto) 0.03 K/uL (0.00-0.20); Basophils % (auto) 0.2 %; Eosinophils # (auto) 0.02 K/uL (0.00-0.50); Eosinophils % (auto) 0.2 %; Hematocrit (blood only) 38.5 % (37.0-47.0); Hemoglobin 12.8 g/dl (12.0-16.0); Immature Granulocytes # (auto) 0.06 K/uL (0.01-0.20); Immature Granulocytes % (auto) 0.5 %; Lymphocytes # (auto) 2.26 K/uL (1.20-3.40); Lymphocytes % (auto) 18.2 %; Mean Corpuscular Hemoglobin 28.3 pg (25.0-34.0); Mean Corpuscular Hgb Conc 33.2 g/dL (32.0-36.0); Mean Platelet Volume 10.6 fL (9.4-12.4); Monocytes # (auto) 1.01 K/uL (0.11-0.59); Monocytes % (auto) 8.2 %; Neutrophils # (auto) 9.01 K/uL (1.40-6.50); Neutrophils % (auto) 72.7 %; Platelet Count 159 K/uL (130-400); RDW Coefficient of Variation 14.5 % (11.5-14.5); RDW Standard Deviation 44.7 fL (36.4-46.3); Red Blood Count 4.53 M/uL (4.20-5.40); White Blood Count 12.39 K/ul (4.8-10.8)
[2023-04-23 12:02] LABS: Albumin Globulin Ratio 1.2 (0.9-2); Albumin Level 3.8 gm/dl (3.4-5.0); BUN Creatinine Ratio 10.2 (10-20); Bilirubin,Total 0.5 mg/dl (0.2-1.0); Calcium 9.7 mg/dl (8.6-10.3); Creatinine Clr Calc Pharmacy 132.6 ml/min; Est GFR (African American) 145.6 ml/min; Est GFR (Non-African American) 125.6 ml/min; Globulin 3.3 gm/dl (2.5-4.0); Potassium 3.8 mmol/L (3.5-5.1); Total Protein 7.1 gm/dl (6.0-8.3)
[2023-04-23] MEDS: ACETAMINOPHEN 500 MG TAB PO PRN ×2 (12:55→19:42)
[2023-04-23 13:14] LABS: Total Protein Urine Random 7.7 mg/dl (0-11.9)
[2023-04-23 13:19] LABS: Creatinine Urine Random 15.5 mg/dl; Protein Creatinine Ratio Urine 0.5 (0-0.2)
--- NOTE | 2023-04-23 16:01 | History & Physical Report ---
Date of Service April 23, 2023 Assessment & Plan (1) Elevated blood pressure complicating , antepartum: Plan: Preeclampsia labs, serial blood pressures. Continues to have headache, now asking for tylenol to treat. Update: normal blood labs, however protein/creatinine ratio is 0.5. Will continue observation. History of Present Illness Chief Complaint: elevated BP in office. Primary Care Provider: Gavin MarleenShelton Hubbard 28yo @ 38 07/22, came to office today with headache and blurred vision, overall feeling unwell. She was found to have elevated BPs in the office and was directed to L&D for further eval/management. complicated by history of preeclampsia with last , marginal i nsertion of cord. +FM, no vaginal bleeding, no leaking fluid. Occ ctx. Allergies Allergy/AdvReac Type Severity Reaction Status Date / Time latex Allergy Mild Rash Verified 04/23/23 09:33 Home Medications Medication Instructions Recorded Confirmed Type prenat.vits,dariela,grh-tylj-ojzup 1 tab PO DAILY 09/19/22 04/23/23 History aspirin 81 mg tablet,delayed 81 mg PO DAILY 01/20/23 04/23/23 History release (Adult Low Dose Aspirin) Patient History Medical History Pre-eclampsia Varicella vaccination Surgical History H/O removal of cyst H/O wisdom tooth extraction (~02/04/17) Family History Mother Kidney stones Osteoporosis Thyroid disease Grandmother (Paternal) Hypertension Denies family history of Ovarian cancer Breast cancer Colorectal cancer Social History Smoking Status: Never smoker Do You Dip or Chew Tobacco: No; Hx Alcohol Use: No Hx Substance Use: No Preferred Language: Bahraini Communication Ability: Effective Visual Impairment: No Limitations Hearing Ability: Normal Manager Of Internal Required: No Beliefs That Will Affect Care: None marital status: marital status details: Jack Garcia (28) [phone] Current Living Situation: Spouse Current Living Situation Comment: Lives with , child and dogs current occupational status: employed current occupation: Registered Behavior Demand Inspector-[employer] Other Information That Helps Us Care for You: No Feels Safe at Home: Yes Safety Concerns: Feels Safe At This Time Diet: regular caffeine: No Dental Care, Regularly: Yes Do you think of yourself as: straight/heterosexual Gender Identity: Female Assistive Devices: None Review of Systems All systems reviewed & are unremarkable except as noted in HPI & below Physical Exam Physical Exam: FHT Cat 1 [place] occ Constitutional: WD/WN, vitals as above Respiratory: normal respiratory effort, lungs clear to auscultation no respiratory distress Cardiovascular: Rate/Rhythm: regular rate and regular rhythm Gastrointestinal (Abdomen): Inspection/Auscultation: abdomen normal to inspection Percussion/Palpation: abdomen soft; abdomen nontender Gravid. No s/s chorio or abruption. Skin: no rashes, warm and dry Psychiatric: A+Ox3, euthymic affect Results & Data Vital Signs (Past 12 Hours) Vital Signs Temp Pulse Resp BP Pulse Ox 04/23/23 15:38 92 H 112/78 04/23/23 15:06 93 H 127/82 04/23/23 14:56 105 H 124/79 04/23/23 14:46 20 04/23/23 14:46 36.8 C 20 04/23/23 14:39 134 H 132/84 04/23/23 14:34 130 H 132/89 04/23/23 12:31 90 122/80 04/23/23 12:28 108 H 97 04/23/23 12:23 111 H 97 04/23/23 12:22 76 119/78 04/23/23 12:18 100 H 97 04/23/23 12:13 91 H 96 04/23/23 12:12 96 H 114/66 04/23/23 12:11 100 H 105/64 04/23/23 12:08 99 H 96 04/23/23 12:03 94 H 95 04/23/23 12:02 111 H 117/79 04/23/23 12:00 87 93 04/23/23 11:58 122 H 97 04/23/23 11:53 82 97 04/23/23 11:50 105 H 114/80 04/23/23 11:48 98 H 96 04/23/23 11:43 119 H 98 11/09/23 11:40 86 110/73 04/23/23 11:38 121 H 97 04/23/23 11:35 77 94 04/23/23 11:33 114 H 97 04/23/23 11:32 85 117/73 04/23/23 11:28 88 96 04/23/23 11:23 87 97 04/23/23 11:20 98 H 120/85 04/23/23 11:18 78 95 04/23/23 11:13 127 H 97 04/23/23 11:12 93 H 118/78 04/23/23 11:08 108 H 97 04/23/23 11:03 94 H 96 04/23/23 11:01 115 H 120/84 04/23/23 10:58 110 H 97 04/23/23 10:53 107 H 97 04/23/23 10:52 83 125/83 04/23/23 10:48 87 97 04/23/23 10:43 84 95 04/23/23 10:40 83 138/83 04/23/23 10:38 107 H 97 04/23/23 10:33 115 H 97 04/23/23 10:31 94 H 133/82 04/23/23 10:16 141 H 131/92 Coding Level of Care Code None Diagnoses Elevated blood pressure complicating , antepartum O16.9
[2023-04-23] MEDS ORDERED: LIDOCAINE 1% LOCAL 20 ML VIAL INFIL PRN (19:33)
[2023-04-23] MEDS ORDERED: OXYTOCIN 30 UNITS/500 ML BAG IV PRN ×2 (19:33)
--- NOTE | 2023-04-23 19:37 | Labor Progress Brief Note ---
Date of Service April 23, 2023 Subjective Patient continues with headache. FHT Cat 1 [place] occ BP 131/92, at this point meets criteria for preeclampsia, given 2 elevated BPs >4h apart. Proteinuria. Discussed this with patient, recommend proceed with IOL. She is agreeable. Will admit to L&D, plans to check cervix and place tee bulb if needed and begin pitocin when able to safely do so with staffing ratios. Will continue monitoring blood pressures and symptoms. Results & Data Vital Signs (Past 12 Hours) Vital Signs Temp Pulse Resp BP Pulse Ox 04/23/23 19:08 123 H 131/92 04/23/23 19:01 37.0 C 18 04/23/23 18:38 155 H 124/81 04/23/23 18:31 111 H 121/83 04/23/23 18:08 114 H 131/84 04/23/23 17:38 100 H 119/81 04/23/23 17:10 89 128/77 04/23/23 16:09 103 H 111/80 04/23/23 15:38 92 H 112/78 04/23/23 15:06 93 H 127/82 04/23/23 14:56 105 H 124/79 04/23/23 14:46 20 04/23/23 14:46 36.8 C 20 04/23/23 14:39 134 H 132/84 04/23/23 14:34 130 H 132/89 04/23/23 12:31 90 122/80 04/23/23 12:28 108 H 97 04/23/23 12:23 111 H 97 04/23/23 12:22 76 119/78 04/23/23 12:18 100 H 97 04/23/23 12:13 91 H 96 04/23/23 12:12 96 H 114/66 04/23/23 12:11 100 H 105/64 04/23/23 12:08 99 H 96 04/23/23 12:03 94 H 95 04/23/23 12:02 111 H 117/79 04/23/23 12:00 87 93 04/23/23 11:58 122 H 97 04/23/23 11:53 82 97 04/23/23 11:50 105 H 114/80 04/23/23 11:48 98 H 96 04/23/23 11:43 119 H 98 04/23/23 11:40 86 110/73 04/23/23 11:38 121 H 97 04/23/23 11:35 77 94 04/23/23 11:33 114 H 97 04/23/23 11:32 85 117/73 04/23/23 11:28 88 96 04/23/23 11:23 87 97 04/23/23 11:20 98 H 120/85 04/23/23 11:18 78 95 04/23/23 11:13 127 H 97 04/23/23 11:12 93 H 118/78 04/23/23 11:08 108 H 97 04/23/23 11:03 94 H 96 04/23/23 11:01 115 H 120/84 04/23/23 10:58 110 H 97 04/23/23 10:53 107 H 97 04/23/23 10:52 83 125/83 04/23/23 10:48 87 97 04/23/23 10:43 84 95 04/23/23 10:40 83 138/83 04/23/23 10:38 107 H 97 04/23/23 10:33 115 H 97 04/23/23 10:31 94 H 133/82 04/23/23 10:16 141 H 131/92 Coding Level of Care Code None
--- NOTE | 2023-04-23 20:25 | Labor Progress Brief Note ---
Date of Service April 23, 2023 Subjective Valle bulb placed, tolerated well. 35cc sterile water. Cervix 1/70/-2 FHT Cat 1 [place] rare Results & Data Vital Signs (Past 12 Hours) Vital Signs Temp Pulse Resp BP Pulse Ox 04/23/23 20:15 118 H 141/97 H 04/23/23 19:45 112 H 130/88 04/23/23 19:08 123 H 131/92 04/23/23 19:01 37.0 C 18 04/23/23 18:38 155 H 124/81 04/23/23 18:31 111 H 121/83 04/23/23 18:08 114 H 131/84 04/23/23 17:38 100 H 119/81 04/23/23 17:10 89 128/77 04/23/23 16:09 103 H 111/80 04/23/23 15:38 92 H 112/78 04/23/23 15:06 93 H 127/82 04/23/23 14:56 105 H 124/79 04/23/23 14:46 20 04/23/23 14:46 36.8 C 20 04/23/23 14:39 134 H 132/84 04/23/23 14:34 130 H 132/89 04/23/23 12:31 90 122/80 04/23/23 12:28 108 H 97 04/23/23 12:23 111 H 97 04/23/23 12:22 76 119/78 04/23/23 12:18 100 H 97 04/23/23 12:13 91 H 96 04/23/23 12:12 96 H 114/66 04/23/23 12:11 100 H 105/64 04/23/23 12:08 99 H 96 04/23/23 12:03 94 H 95 04/23/23 12:02 111 H 117/79 04/23/23 12:00 87 93 04/23/23 11:58 122 H 97 04/23/23 11:53 82 97 04/23/23 11:50 105 H 114/80 04/23/23 11:48 98 H 96 04/23/23 11:43 119 H 98 04/23/23 11:40 86 110/73 04/23/23 11:38 121 H 97 04/23/23 11:35 77 94 04/23/23 11:33 114 H 97 04/23/23 11:32 85 117/73 04/23/23 11:28 88 96 04/23/23 11:23 87 97 04/23/23 11:20 98 H 120/85 04/23/23 11:18 78 95 04/23/23 11:13 127 H 97 04/23/23 11:12 93 H 118/78 04/23/23 11:08 108 H 97 04/23/23 11:03 94 H 96 04/23/23 11:01 115 H 120/84 04/23/23 10:58 110 H 97 04/23/23 10:53 107 H 97 04/23/23 10:52 83 125/83 04/23/23 10:48 87 97 04/23/23 10:43 84 95 04/23/23 10:40 83 138/83 04/23/23 10:38 107 H 97 04/23/23 10:33 115 H 97 04/23/23 10:31 94 H 133/82 04/23/23 10:16 141 H 131/92 Coding Level of Care Code None
[2023-04-23] MEDS: LACTATED RINGER'S 1,000 ML IV PRN (21:12)
[2023-04-23] MEDS ORDERED: fentANYL 2 MCG/ML BUPIVacaine 0.125%-NSS 100ML BAG ONE (22:09)
[2023-04-23] MEDS ORDERED: SODIUM CHLORIDE 0.9% PF INJ 10 ML VIAL ONE (22:09)
[2023-04-23] MEDS ORDERED: fentaNYL citrate PF 100 MCG/2 ML VIAL ONE (22:09)
[2023-04-23] MEDS ORDERED: ePHEDrine sulfate 50 MG/ML AMP ONE (22:09)
[2023-04-23] MEDS ORDERED: LIDOCAINE 2%/EPINEPHRINE 1:200,000 20 ML PF ONE (22:09)
[2023-04-23] MEDS ORDERED: BUPIVACAINE 0.25% PF 30 ML VIAL ONE (22:09)
[2023-04-23] MEDS ORDERED: fentANYL 2 MCG/ML BUPIVacaine 0.125%-NSS 100ML BAG EPI PRN (23:00)
[2023-04-23] MEDS ORDERED: LIDOCAINE 2%/EPINEPHRINE 1:200,000 20 ML PF EPI STA (23:00)
[2023-04-23] MEDS ORDERED: NALBUPHINE HCL 5 MG in SYRINGE 0 ML IV PRN (23:00)
[2023-04-23] MEDS ORDERED: LIDOCAINE 2% MPF LOCAL 5 ML VIAL EPI PRN (23:00)
[2023-04-23] MEDS ORDERED: fentaNYL citrate PF 100 MCG/2 ML VIAL EPI STA (23:00)
[2023-04-23] MEDS ORDERED: BUPIVACAINE 0.25% PF 30 ML VIAL EPI STA (23:00)
[2023-04-23] MEDS ORDERED: diphenhydrAMINE 50 MG/ML VIAL IV PRN (23:00)
[2023-04-23] MEDS ORDERED: ePHEDrine sulfate 50 MG/ML AMP IV PRN (23:00)
[2023-04-23] MEDS ORDERED: BUPIVACAINE 0.25% PF 30 ML VIAL EPI PRN (23:00)
[2023-04-23] MEDS ORDERED: NALOXONE HCL 0.4 MG/1 ML VIAL/CARP IV PRN (23:00)
[2023-04-23] MEDS ORDERED: SODIUM CHLORIDE 0.9% PF INJ 10 ML VIAL EPI STA (23:00)
[2023-04-23] MEDS ORDERED: ROPIVACAINE 0.5% PF 5 MG/ML 20 ML VIAL EPI PRN (23:00)
[2023-04-23] MEDS ORDERED: SODIUM CHLORIDE 0.9% PF INJ 10 ML VIAL EPI PRN (23:00)
[2023-04-23] MEDS ORDERED: fentaNYL citrate PF 100 MCG/2 ML VIAL EPI PRN (23:00)
[2023-04-23] MEDS ORDERED: NALOXONE HCL 1 MG in SODIUM CHLORIDE 0.9% 1,000 ML IV PRN (23:00)
[2023-04-23] MEDS ORDERED: ONDANSETRON INJ 2 MG/ML 2 ML VIAL IV PRN (23:00)
--- NOTE | 2023-04-23 23:01 | Anesthesiology Consultation ---
Date of Service April 23, 2023 Assessment & Plan Chart Review Chart Review: Patient NOT seen in Pre Admission Testing and Acceptable Risk for Labor Epidural Consults Requested none ASA ASA2 Proposed Anesthesia Anesthesia Type: Labor Epidural Risk / Benefits Reviewed With: PT / POA / Parent / Guardian, Accepts Plan and Informed Consent Obtained History Height/Weight Height: 5 ft 3 in Weight: 68.039 kg Allergies Allergy/AdvReac Type Severity Reaction Status Date / Time latex Allergy Mild Rash Verified 04/23/23 09:33 Medications Home Medications Medication Instructions Recorded Confirmed Last Taken prenat.vits,dariela,dtt-[id number] 1 tab PO DAILY 09/19/22 04/23/23 04/23/23 07:30 aspirin 81 mg tablet,delayed 81 mg PO DAILY 01/20/23 04/23/23 04/23/23 07:30 release (Adult Low Dose Aspirin) Active Medications Generic Name Dose Route Start Last Admin Trade Name Freq PRN Reason Stop Dose Admin Acetaminophen 1,000 mg 04/23/23 12:47 04/23/23 19:42 Acetaminophen 500 Mg Tab PO 05/23/23 12:46 1,000 mg Q8H PRN Administration Pain Lactated Ringer's 1,000 mls @ 125 mls/hr 04/23/23 19:33 04/23/23 22:47 Lr IV 04/25/23 19:32 125 mls/hr .Q8H PRN Infusion L&D Protocol Protocol Oxytocin 30 units in 500 mls @ 1 mls/hr 04/23/23 19:33 04/23/23 22:02 Pitocin IV 04/25/23 19:32 0.06 units/hr .Q24H PRN 1 mls/hr Labor Induction/Augmentation Administration Protocol 0.06 UNITS/HR Past Medical History Medical History Pre-eclampsia Varicella vaccination Exercise / Class Metabolic Activity II 4-5 Yardwork/Stairs/Walk up hill Past Family History Family History Mother Kidney stones Osteoporosis Thyroid disease Grandmother (Paternal) Hypertension Denies family history of Ovarian cancer Breast cancer Colorectal cancer Past Surgical History Surgical History H/O removal of cyst H/O wisdom tooth extraction (~02/04/17) Past Anesthesia History No Hx of Anesthesia Complications and No Family Hx of Anesthesia Complications History of PONV No Hx of PONV and No Hx of Motion Sickness Social History Smoking Status: Never smoker Do You Dip or Chew Tobacco: No Hx Alcohol Use: No Hx Substance Use: No substance use type: does not use Physical Exam Vital Signs Last Vital Signs Temp 36.8 C 04/23/23 22:45 Pulse 95 H 04/23/23 23:00 Resp 18 04/23/23 22:45 BP 117/74 04/23/23 23:00 Pulse Ox 98 04/23/23 22:57 ENMT Mouth: no dentition abnormality Thyromental Distance: > or= 3.5 Finger Breadths Mallampati Class: II Neck normal visual inspection Respiratory normal respiratory effort Auscultation: lungs clear to auscultation bilaterally Cardiovascular Rate/Rhythm: regular rate and regular rhythm Psychiatric Orientation: alert Testing Laboratory Results 04/23/23 11:29 04/23/23 11:29
[2023-04-24] MEDS: LACTATED RINGER'S 1,000 ML IV PRN ×2 (00:07→07:56)
[2023-04-24 06:39] LABS: Hematocrit (blood only) 36.1 % (37.0-47.0); Mean Corpuscular Hemoglobin 28.6 pg (25.0-34.0); Mean Corpuscular Hgb Conc 33.2 g/dL (32.0-36.0); Mean Corpuscular Volume 86.2 fL (80.0-100.0); Mean Platelet Volume 10.3 fL (9.4-12.4); Platelet Count 146 K/uL (130-400); RDW Coefficient of Variation 14.5 % (11.5-14.5); RDW Standard Deviation 45.1 fL (36.4-46.3); Red Blood Count 4.19 M/uL (4.20-5.40); White Blood Count 13.47 K/ul (4.8-10.8)
[2023-04-24 06:45] LABS: Albumin Globulin Ratio 1.1 (0.9-2); Albumin Level 3.3 gm/dl (3.4-5.0); BUN Creatinine Ratio 13.6 (10-20); Bilirubin,Total 0.7 mg/dl (0.2-1.0); Calcium 8.6 mg/dl (8.6-10.3); Creatinine Clr Calc Pharmacy 132.6 ml/min; Est GFR (African American) 145.6 ml/min; Est GFR (Non-African American) 125.6 ml/min; Globulin 2.9 gm/dl (2.5-4.0); Total Protein 6.2 gm/dl (6.0-8.3)
--- NOTE | 2023-04-24 08:18 | Labor Progress Brief Note ---
Date of Service April 24, 2023 Subjective Epidural. Valle bulb still in. BPs wnl. FHT Cat 1 [place] Q 2 Assessment & Plan Admission and Anticipated Discharge Date Admission Date: April 23, 2023 Results & Data Vital Signs (Past 12 Hours) Vital Signs Temp Pulse Resp BP Pulse Ox 04/24/23 08:17 81 97 04/24/23 08:12 83 98 04/24/23 08:11 88 110/64 04/24/23 08:07 88 97 04/24/23 08:02 88 97 04/24/23 08:00 18 04/24/23 08:00 18 04/24/23 07:57 90 97 04/24/23 07:56 83 108/59 L 04/24/23 07:52 88 98 04/24/23 07:47 82 97 04/24/23 07:42 79 97 04/24/23 07:41 81 101/55 L 04/24/23 07:37 77 97 04/24/23 07:32 74 97 04/24/23 07:30 20 04/24/23 07:30 20 04/24/23 07:27 79 97 04/24/23 07:26 87 100/58 L 04/24/23 07:22 83 97 04/24/23 07:17 81 98 04/24/23 07:12 80 98 04/24/23 07:11 37.0 C 84 20 109/66 04/24/23 07:07 90 97 04/24/23 07:02 85 98 04/24/23 06:57 86 97 04/24/23 06:56 87 101/61 04/24/23 06:52 92 H 98 04/24/23 06:47 82 97 04/24/23 06:42 75 98 04/24/23 06:41 75 100/55 L 04/24/23 06:37 91 H 98 04/24/23 06:32 101 H 97 04/24/23 06:27 92 H 99 04/24/23 06:26 82 108/60 04/24/23 06:22 77 97 04/24/23 06:17 80 98 04/24/23 06:12 97 H 97 04/24/23 06:11 85 112/59 L 04/24/23 06:07 87 98 04/24/23 06:02 98 H 97 04/24/23 05:57 78 99/58 L 97 04/24/23 05:52 90 96 04/24/23 05:47 96 H 97 04/24/23 05:42 107 H 97 04/24/23 05:41 96 H 123/79 04/24/23 05:37 89 97 04/24/23 05:32 91 H 98 04/24/23 05:27 91 H 97 04/24/23 05:26 92 H 118/76 04/24/23 05:22 95 H 97 04/24/23 05:17 85 97 04/24/23 05:12 86 120/73 98 04/24/23 05:07 84 98 04/24/23 05:02 98 H 98 04/24/23 04:57 100 H 98 04/24/23 04:56 100 H 131/76 04/24/23 04:52 104 H 98 04/24/23 04:47 80 98 04/24/23 04:42 88 127/77 97 04/24/23 04:37 80 97 04/24/23 04:32 81 97 04/24/23 04:27 90 98 04/24/23 04:26 88 121/76 04/24/23 04:22 93 H 97 04/24/23 04:17 99 H 98 04/24/23 04:12 87 98 04/24/23 04:11 85 118/76 04/24/23 04:07 87 97 04/24/23 04:02 88 98 04/24/23 04:00 18 04/24/23 04:00 18 04/24/23 03:57 87 97 04/24/23 03:56 87 116/71 04/24/23 03:52 81 96 04/24/23 03:47 85 97 04/24/23 03:42 81 97 04/24/23 03:41 88 116/69 04/24/23 03:37 82 97 04/24/23 03:32 84 98 04/24/23 03:30 18 04/24/23 03:30 18 04/24/23 03:27 83 98 04/24/23 03:26 90 121/74 04/24/23 03:22 91 H 97 04/24/23 03:17 81 96 04/24/23 03:13 81 119/74 04/24/23 03:12 82 97 04/24/23 03:07 90 97 04/24/23 03:02 84 97 04/24/23 03:00 18 04/24/23 03:00 37.0 C 18 04/24/23 02:57 86 97 04/24/23 02:56 99 H 122/77 04/24/23 02:52 95 H 97 04/24/23 02:47 99 H 98 04/24/23 02:42 92 H 121/72 98 04/24/23 02:37 97 H 98 04/24/23 02:32 101 H 98 04/24/23 02:27 97 H 98 04/24/23 02:26 93 H 124/72 04/24/23 02:22 102 H 98 04/24/23 02:17 98 H 98 04/24/23 02:12 83 97 04/24/23 02:11 88 124/67 04/24/23 02:07 100 H 98 04/24/23 02:02 87 98 04/24/23 02:00 18 04/24/23 02:00 18 04/24/23 01:57 98 H 98 04/24/23 01:56 106 H 121/78 04/24/23 01:52 90 97 04/24/23 01:47 89 98 04/24/23 01:42 100 H 97 04/24/23 01:41 96 H 117/72 04/24/23 01:37 83 97 04/24/23 01:32 91 H 97 04/24/23 01:27 94 H 97 04/24/23 01:26 95 H 117/73 04/24/23 01:22 79 97 04/24/23 01:17 105 H 97 04/24/23 01:12 98 H 97 04/24/23 01:11 92 H 122/76 04/24/23 01:07 101 H 98 04/24/23 01:02 84 96 04/24/23 00:57 113 H 98 04/24/23 00:56 99 H 122/75 04/24/23 00:52 82 97 04/24/23 00:47 82 97 04/24/23 00:42 110 H 98 04/24/23 00:41 96 H 118/77 04/24/23 00:37 106 H 97 04/24/23 00:32 80 98 04/24/23 00:30 18 04/24/23 00:30 18 04/24/23 00:27 127 H 98 04/24/23 00:26 105 H 118/74 04/24/23 00:22 109 H 99 04/24/23 00:17 109 H 99 04/24/23 00:13 103 H 117/73 04/24/23 00:12 111 H 99 04/24/23 00:11 127 H 107/67 04/24/23 00:09 104 H 118/73 04/24/23 00:07 110 H 99 04/24/23 00:05 80 119/73 04/24/23 00:03 93 H 116/75 04/24/23 00:02 88 98 04/23/23 23:57 108 H 99 04/23/23 23:56 122 H 77/35 L 04/23/23 23:52 93 H 98 04/23/23 23:47 109 H 99 04/23/23 23:42 96 H 103/69 98 04/23/23 23:37 106 H 99 04/23/23 23:32 97 H 99 04/23/23 23:28 90 102/61 04/23/23 23:27 99 H 97 04/23/23 23:26 86 103/59 L 04/23/23 23:22 113 H 98 04/23/23 23:17 99 H 99 04/23/23 23:12 108 H 98 04/23/23 23:10 106 H 109/66 04/23/23 23:08 114 H 116/70 04/23/23 23:07 85 97 04/23/23 23:06 90 117/80 04/23/23 23:04 104 H 116/78 04/23/23 23:02 112 H 117/81 98 04/23/23 23:00 95 H 18 117/74 04/23/23 22:58 109 H 114/77 04/23/23 22:57 98 H 98 04/23/23 22:56 96 H 122/78 04/23/23 22:54 108 H 124/82 04/23/23 22:52 101 H 04/23/23 22:52 106 H 133/85 98 04/23/23 22:47 115 H 99 11/09/23 22:45 18 04/23/23 22:45 36.8 C 18 04/23/23 22:15 115 H 131/81 04/23/23 21:45 98 H 120/73 04/23/23 21:15 83 120/79 04/23/23 20:45 98 H 121/74 Coding Level of Care Code None
--- NOTE | 2023-04-24 09:05 | Labor Progress Brief Note ---
Date of Service April 24, 2023 Subjective pt comfortable but reports return to mild sesay Assessment & Plan (1) Pre-eclampsia: Plan pt progressing well. will see how arom helps labor pattern. offered and desired tylenol. Admission and Anticipated Discharge Date Admission Date: April 23, 2023 Physical Exam Constitutional: WD/WN, vitals as above Genitourinary: Manual OB Exam: + cervical dilation (7), + cervical effacement (80), + station -2 and + amniotic fluid (clear) OB Exam Monitor Tracing: + external FHT monitor used, + external uterine monitor used (q2), + category I and + normal FHT variability Results & Data Vital Signs (Past 12 Hours) Vital Signs Temp Pulse Resp BP Pulse Ox 04/24/23 08:57 122 H 98 04/24/23 08:56 122 H 138/87 04/24/23 08:52 102 H 98 04/24/23 08:47 90 97 04/24/23 08:42 85 98 04/24/23 08:41 89 120/79 04/24/23 08:37 92 H 98 04/24/23 08:32 86 97 04/24/23 08:30 20 04/24/23 08:30 20 04/24/23 08:27 92 H 124/71 98 04/24/23 08:22 87 97 04/24/23 08:17 81 97 04/24/23 08:12 83 98 04/24/23 08:11 88 110/64 04/24/23 08:07 88 97 04/24/23 08:02 88 97 04/24/23 08:00 18 04/24/23 08:00 18 04/24/23 07:57 90 97 04/24/23 07:56 83 108/59 L 04/24/23 07:52 88 98 04/24/23 07:47 82 97 04/24/23 07:42 79 97 04/24/23 07:41 81 101/55 L 04/24/23 07:37 77 97 04/24/23 07:32 74 97 04/24/23 07:30 20 04/24/23 07:30 20 04/24/23 07:27 79 97 04/24/23 07:26 87 100/58 L 04/24/23 07:22 83 97 04/24/23 07:17 81 98 04/24/23 07:12 80 98 04/24/23 07:11 98.6 F 84 20 109/66 04/24/23 07:07 90 97 04/24/23 07:02 85 98 04/24/23 06:57 86 97 04/24/23 06:56 87 101/61 04/24/23 06:52 92 H 98 04/24/23 06:47 82 97 04/24/23 06:42 75 98 04/24/23 06:41 75 100/55 L 04/24/23 06:37 91 H 98 04/24/23 06:32 101 H 97 04/24/23 06:27 92 H 99 04/24/23 06:26 82 108/60 04/24/23 06:22 77 97 04/24/23 06:17 80 98 04/24/23 06:12 97 H 97 04/24/23 06:11 85 112/59 L 04/24/23 06:07 87 98 04/24/23 06:02 98 H 97 04/24/23 05:57 78 99/58 L 97 04/24/23 05:52 90 96 04/24/23 05:47 96 H 97 04/24/23 05:42 107 H 97 04/24/23 05:41 96 H 123/79 04/24/23 05:37 89 97 04/24/23 05:32 91 H 98 04/24/23 05:27 91 H 97 04/24/23 05:26 92 H 118/76 04/24/23 05:22 95 H 97 04/24/23 05:17 85 97 04/24/23 05:12 86 120/73 98 04/24/23 05:07 84 98 04/24/23 05:02 98 H 98 04/24/23 04:57 100 H 98 04/24/23 04:56 100 H 131/76 04/24/23 04:52 104 H 98 04/24/23 04:47 80 98 04/24/23 04:42 88 127/77 97 04/24/23 04:37 80 97 04/24/23 04:32 81 97 04/24/23 04:27 90 98 04/24/23 04:26 88 121/76 04/24/23 04:22 93 H 97 04/24/23 04:17 99 H 98 04/24/23 04:12 87 98 04/24/23 04:11 85 118/76 04/24/23 04:07 87 97 04/24/23 04:02 88 98 04/24/23 04:00 18 04/24/23 04:00 18 04/24/23 03:57 87 97 04/24/23 03:56 87 116/71 04/24/23 03:52 81 96 04/24/23 03:47 85 97 04/24/23 03:42 81 97 04/24/23 03:41 88 116/69 04/24/23 03:37 82 97 04/24/23 03:32 84 98 04/24/23 03:30 18 04/24/23 03:30 18 04/24/23 03:27 83 98 04/24/23 03:26 90 121/74 04/24/23 03:22 91 H 97 04/24/23 03:17 81 96 04/24/23 03:13 81 119/74 04/24/23 03:12 82 97 04/24/23 03:07 90 97 04/24/23 03:02 84 97 04/24/23 03:00 18 04/24/23 03:00 98.6 F 18 04/24/23 02:57 86 97 04/24/23 02:56 99 H 122/77 04/24/23 02:52 95 H 97 04/24/23 02:47 99 H 98 04/24/23 02:42 92 H 121/72 98 04/24/23 02:37 97 H 98 04/24/23 02:32 101 H 98 04/24/23 02:27 97 H 98 04/24/23 02:26 93 H 124/72 04/24/23 02:22 102 H 98 04/24/23 02:17 98 H 98 04/24/23 02:12 83 97 04/24/23 02:11 88 124/67 04/24/23 02:07 100 H 98 04/24/23 02:02 87 98 04/24/23 02:00 18 04/24/23 02:00 18 04/24/23 01:57 98 H 98 04/24/23 01:56 106 H 121/78 04/24/23 01:52 90 97 04/24/23 01:47 89 98 04/24/23 01:42 100 H 97 04/24/23 01:41 96 H 117/72 04/24/23 01:37 83 97 04/24/23 01:32 91 H 97 04/24/23 01:27 94 H 97 04/24/23 01:26 95 H 117/73 04/24/23 01:22 79 97 04/24/23 01:17 105 H 97 04/24/23 01:12 98 H 97 04/24/23 01:11 92 H 122/76 04/24/23 01:07 101 H 98 04/24/23 01:02 84 96 04/24/23 00:57 113 H 98 04/24/23 00:56 99 H 122/75 04/24/23 00:52 82 97 04/24/23 00:47 82 97 04/24/23 00:42 110 H 98 04/24/23 00:41 96 H 118/77 04/24/23 00:37 106 H 97 04/24/23 00:32 80 98 04/24/23 00:30 18 04/24/23 00:30 18 04/24/23 00:27 127 H 98 04/24/23 00:26 105 H 118/74 04/24/23 00:22 109 H 99 04/24/23 00:17 109 H 99 04/24/23 00:13 103 H 117/73 04/24/23 00:12 111 H 99 04/24/23 00:11 127 H 107/67 04/24/23 00:09 104 H 118/73 04/24/23 00:07 110 H 99 04/24/23 00:05 80 119/73 04/24/23 00:03 93 H 116/75 04/24/23 00:02 88 98 04/23/23 23:57 108 H 99 04/23/23 23:56 122 H 77/35 L 04/23/23 23:52 93 H 98 04/23/23 23:47 109 H 99 04/23/23 23:42 96 H 103/69 98 04/23/23 23:37 106 H 99 04/23/23 23:32 97 H 99 04/23/23 23:28 90 102/61 04/23/23 23:27 99 H 97 04/23/23 23:26 86 103/59 L 04/23/23 23:22 113 H 98 04/23/23 23:17 99 H 99 04/23/23 23:12 108 H 98 04/23/23 23:10 106 H 109/66 04/23/23 23:08 114 H 116/70 04/23/23 23:07 85 97 04/23/23 23:06 90 117/80 04/23/23 23:04 104 H 116/78 04/23/23 23:02 112 H 117/81 98 04/23/23 23:00 95 H 18 117/74 04/23/23 22:58 109 H 114/77 04/23/23 22:57 98 H 98 04/23/23 22:56 96 H 122/78 04/23/23 22:54 108 H 124/82 04/23/23 22:52 101 H 04/23/23 22:52 106 H 133/85 98 04/23/23 22:47 115 H 99 04/23/23 22:45 18 04/23/23 22:45 98.2 F 18 04/23/23 22:15 115 H 131/81 04/23/23 21:45 98 H 120/73 04/23/23 21:15 83 120/79 Coding Level of Care Code None Diagnoses Pre-eclampsia O14.90
[2023-04-24] MEDS: ACETAMINOPHEN 500 MG TAB PO PRN (09:07)
--- NOTE | 2023-04-24 09:41 | Labor Progress Brief Note ---
Date of Service April 24, 2023 Subjective feeling pressure Assessment & Plan (1) Pre-eclampsia: Plan good cx change. anticipate soon. Admission and Anticipated Discharge Date Admission Date: April 23, 2023 Physical Exam Constitutional: WD/WN, vitals as above Genitourinary: Manual OB Exam: + cervical dilation 9 cm, + cervical effacement 90% and + station + 1 OB Exam Monitor Tracing: + external FHT monitor used, + external uterine monitor used (q2), + category I and + normal FHT variability Results & Data Vital Signs (Past 12 Hours) Vital Signs Temp Pulse Resp BP Pulse Ox 04/24/23 09:37 142 H 98 04/24/23 09:32 105 H 98 04/24/23 09:27 108 H 98 04/24/23 09:26 116 H 134/82 04/24/23 09:22 95 H 98 04/24/23 09:17 104 H 98 04/24/23 09:12 101 H 98 04/24/23 09:11 110 H 123/80 04/24/23 09:07 98 H 98 04/24/23 09:02 88 98 04/24/23 09:00 20 04/24/23 09:00 98.6 F 20 04/24/23 08:57 122 H 98 04/24/23 08:56 122 H 138/87 04/24/23 08:52 102 H 98 04/24/23 08:47 90 97 04/24/23 08:42 85 98 04/24/23 08:41 89 120/79 04/24/23 08:37 92 H 98 04/24/23 08:32 86 97 04/24/23 08:30 20 04/24/23 08:30 20 04/24/23 08:27 92 H 124/71 98 04/24/23 08:22 87 97 04/24/23 08:17 81 97 04/24/23 08:12 83 98 04/24/23 08:11 88 110/64 04/24/23 08:07 88 97 04/24/23 08:02 88 97 04/24/23 08:00 18 04/24/23 08:00 18 04/24/23 07:57 90 97 04/24/23 07:56 83 108/59 L 04/24/23 07:52 88 98 04/24/23 07:47 82 97 04/24/23 07:42 79 97 04/24/23 07:41 81 101/55 L 04/24/23 07:37 77 97 04/24/23 07:32 74 97 04/24/23 07:30 20 04/24/23 07:30 20 04/24/23 07:27 79 97 04/24/23 07:26 87 100/58 L 04/24/23 07:22 83 97 04/24/23 07:17 81 98 04/24/23 07:12 80 98 04/24/23 07:11 98.6 F 84 20 109/66 04/24/23 07:07 90 97 04/24/23 07:02 85 98 04/24/23 06:57 86 97 04/24/23 06:56 87 101/61 04/24/23 06:52 92 H 98 04/24/23 06:47 82 97 04/24/23 06:42 75 98 04/24/23 06:41 75 100/55 L 04/24/23 06:37 91 H 98 04/24/23 06:32 101 H 97 04/24/23 06:27 92 H 99 04/24/23 06:26 82 108/60 04/24/23 06:22 77 97 04/24/23 06:17 80 98 04/24/23 06:12 97 H 97 04/24/23 06:11 85 112/59 L 04/24/23 06:07 87 98 04/24/23 06:02 98 H 97 04/24/23 05:57 78 99/58 L 97 04/24/23 05:52 90 96 04/24/23 05:47 96 H 97 04/24/23 05:42 107 H 97 04/24/23 05:41 96 H 123/79 04/24/23 05:37 89 97 04/24/23 05:32 91 H 98 04/24/23 05:27 91 H 97 04/24/23 05:26 92 H 118/76 04/24/23 05:22 95 H 97 04/24/23 05:17 85 97 04/24/23 05:12 86 120/73 98 04/24/23 05:07 84 98 04/24/23 05:02 98 H 98 04/24/23 04:57 100 H 98 04/24/23 04:56 100 H 131/76 04/24/23 04:52 104 H 98 04/24/23 04:47 80 98 04/24/23 04:42 88 127/77 97 04/24/23 04:37 80 97 04/24/23 04:32 81 97 04/24/23 04:27 90 98 04/24/23 04:26 88 121/76 04/24/23 04:22 93 H 97 04/24/23 04:17 99 H 98 04/24/23 04:12 87 98 04/24/23 04:11 85 118/76 04/24/23 04:07 87 97 04/24/23 04:02 88 98 04/24/23 04:00 18 04/24/23 04:00 18 04/24/23 03:57 87 97 04/24/23 03:56 87 116/71 04/24/23 03:52 81 96 04/24/23 03:47 85 97 04/24/23 03:42 81 97 04/24/23 03:41 88 116/69 04/24/23 03:37 82 97 04/24/23 03:32 84 98 04/24/23 03:30 18 04/24/23 03:30 18 04/24/23 03:27 83 98 04/24/23 03:26 90 121/74 04/24/23 03:22 91 H 97 04/24/23 03:17 81 96 04/24/23 03:13 81 119/74 04/24/23 03:12 82 97 04/24/23 03:07 90 97 04/24/23 03:02 84 97 04/24/23 03:00 18 04/24/23 03:00 98.6 F 18 04/24/23 02:57 86 97 04/24/23 02:56 99 H 122/77 04/24/23 02:52 95 H 97 04/24/23 02:47 99 H 98 04/24/23 02:42 92 H 121/72 98 04/24/23 02:37 97 H 98 04/24/23 02:32 101 H 98 04/24/23 02:27 97 H 98 04/24/23 02:26 93 H 124/72 04/24/23 02:22 102 H 98 04/24/23 02:17 98 H 98 04/24/23 02:12 83 97 04/24/23 02:11 88 124/67 04/24/23 02:07 100 H 98 04/24/23 02:02 87 98 04/24/23 02:00 18 04/24/23 02:00 18 04/24/23 01:57 98 H 98 04/24/23 01:56 106 H 121/78 04/24/23 01:52 90 97 04/24/23 01:47 89 98 04/24/23 01:42 100 H 97 04/24/23 01:41 96 H 117/72 04/24/23 01:37 83 97 04/24/23 01:32 91 H 97 04/24/23 01:27 94 H 97 04/24/23 01:26 95 H 117/73 04/24/23 01:22 79 97 04/24/23 01:17 105 H 97 04/24/23 01:12 98 H 97 04/24/23 01:11 92 H 122/76 04/24/23 01:07 101 H 98 04/24/23 01:02 84 96 04/24/23 00:57 113 H 98 04/24/23 00:56 99 H 122/75 04/24/23 00:52 82 97 04/24/23 00:47 82 97 04/24/23 00:42 110 H 98 04/24/23 00:41 96 H 118/77 04/24/23 00:37 106 H 97 04/24/23 00:32 80 98 04/24/23 00:30 18 04/24/23 00:30 18 04/24/23 00:27 127 H 98 04/24/23 00:26 105 H 118/74 04/24/23 00:22 109 H 99 04/24/23 00:17 109 H 99 04/24/23 00:13 103 H 117/73 04/24/23 00:12 111 H 99 04/24/23 00:11 127 H 107/67 04/24/23 00:09 104 H 118/73 04/24/23 00:07 110 H 99 04/24/23 00:05 80 119/73 04/24/23 00:03 93 H 116/75 04/24/23 00:02 88 98 04/23/23 23:57 108 H 99 04/23/23 23:56 122 H 77/35 L 04/23/23 23:52 93 H 98 04/23/23 23:47 109 H 99 04/23/23 23:42 96 H 103/69 98 04/23/23 23:37 106 H 99 04/23/23 23:32 97 H 99 04/23/23 23:28 90 102/61 04/23/23 23:27 99 H 97 04/23/23 23:26 86 103/59 L 04/23/23 23:22 113 H 98 04/23/23 23:17 99 H 99 04/23/23 23:12 108 H 98 04/23/23 23:10 106 H 109/66 04/23/23 23:08 114 H 116/70 04/23/23 23:07 85 97 04/23/23 23:06 90 117/80 04/23/23 23:04 104 H 116/78 04/23/23 23:02 112 H 117/81 98 04/23/23 23:00 95 H 18 117/74 04/23/23 22:58 109 H 114/77 04/23/23 22:57 98 H 98 04/23/23 22:56 96 H 122/78 04/23/23 22:54 108 H 124/82 04/23/23 22:52 101 H 04/23/23 22:52 106 H 133/85 98 04/23/23 22:47 115 H 99 04/23/23 22:45 18 04/23/23 22:45 98.2 F 18 04/23/23 22:15 115 H 131/81 04/23/23 21:45 98 H 120/73 Coding Level of Care Code None Diagnoses Pre-eclampsia O14.90
--- NOTE | 2023-04-24 12:46 | Delivery Summary ---
Vaginal Delivery Summary Date of Service April 24, 2023 Vaginal Delivery Summary and 1st Degree LAC Patient progressed to 10 cm dilated 100% effaced +2 station and pushed over an intact perineum with epidural anesthesia and delivered a viable male with weight and Apgars pending. Had the delivered in MISSY position rest due to right transverse. No nuchal cord was noted. Body and shoulders quickly followed. was noted to be vigorous upon delivery and a 1 minute delayed cord clamping was initiated. Cord was then double clamped and cut. remained on the maternal abdomen. Cord blood obtained. Attention was then turned to delivery of placenta which delivered intact with three-vessel cord with gentle cord traction. Inspection of perineum vagina and cervix there is noted to be a first-degree perineal laceration which was repaired with 3-0 Vicryl in continuous running stitch. Needle sponge and instrument counts were correct at the completion of the case. Both mother and stable in the immediate postdelivery. No complications noted with delivery and EBL of approximately 200 mL. [facility] Vaginal Delivery Charge Delivery Type Details: and 1st Degree LAC
[2023-04-24] MEDS ORDERED: bisacodyL 10 MG SUPP PR PRN (12:59)
[2023-04-24] MEDS ORDERED: OXYTOCIN 30 UNITS/500 ML BAG IV PRN (12:59)
[2023-04-24] MEDS ORDERED: ACETAMINOPHEN 325 MG TAB PO PRN (12:59)
[2023-04-24] MEDS ORDERED: HYDROCORTISONE ACETATE 25 MG SUPP PR PRN (12:59)
[2023-04-24] MEDS ORDERED: BENZOCAINE 20% SPRY 85 APPLN/85 GM CAN EXT PRN (12:59)
[2023-04-24] MEDS ORDERED: DIPHTHERIA/TETANUS/PERTUSSIS Vaccine (Tdap, Age 7+yrs) 0.5mL SYR/VL IM ONE (12:59)
[2023-04-24] MEDS: IBUPROFEN 600 MG TAB PO PRN ×2 (15:20→22:23)
[2023-04-24] MEDS: DOCUSATE SODIUM 100 MG CAP PO SCH (22:23)
[2023-04-25] MEDS: IBUPROFEN 600 MG TAB PO PRN ×3 (06:10→19:51)
[2023-04-25 06:42] LABS: Hematocrit (blood only) 34.7 % (37.0-47.0); Hemoglobin 11.6 g/dl (12.0-16.0); Mean Corpuscular Hemoglobin 28.4 pg (25.0-34.0); Mean Corpuscular Hgb Conc 33.4 g/dL (32.0-36.0); Mean Corpuscular Volume 84.8 fL (80.0-100.0); Mean Platelet Volume 10.4 fL (9.4-12.4); Platelet Count 141 K/uL (130-400); RDW Coefficient of Variation 14.6 % (11.5-14.5); RDW Standard Deviation 44.7 fL (36.4-46.3); Red Blood Count 4.09 M/uL (4.20-5.40); White Blood Count 14.06 K/ul (4.8-10.8)
--- NOTE | 2023-04-25 07:15 | Obstetrical Progress Note ---
Date of Service <Clarissa Luna MD - Last Filed: 04/25/23 08:06> April 25, 2023 Assessment & Plan <Clarissa Luna MD - Last Filed: 04/25/23 08:06> (1) Encounter for assessment: Plan Patient with the above mentioned history and findings was evaluated at bedside and found awake, alert, oriented in all spheres, afebrile, and in no acute distress. Vital signs showed no fever and blood pressures remained stable with the highest measuring 139/94 mmHg. Her blood type is A pos and today's hemoglobin is adequate at 11.6 g/dL. GBS negative and rubella immune. Overall, patient is doing well clinically and meeting the desired milestones. Will continue routine pp care. All questions were answered. <Deedee Reyes MD, FACOG - Last Filed: 04/25/23 08:49> (1) Encounter for assessment: Subjective <Clarissa Luna MD - Last Filed: 04/25/23 08:06> Sharee is a 28 y/o female who is now PPD # 1 following at 37 3/7 weeks. Reports feeling well overall this morning. Refers mils abdominal cramping & 2/10 pain well managed on analgesics. Voiding spontaneously. Passing gas but no bowel movements yet. Tolerating meals overnight and able to ambulate some. Some persistent lochia with some improvement this morning. . Constitutional: no fever, no chills or no sweats Denies shortness of breath or difficulty breathing Cardiovascular: no chest pain or no palpitations Breast: no breast pain Genitourinary (female): no dysuria Neurologic: no headache(s) Denies changes in vision Physical Exam <Clarissa Luna MD - Last Filed: 04/25/23 08:06> General: Alert. Oriented to person, time, and place. Afebrile. No acute distress. Eyes: pupils equal and reactive to light bilaterally, extraocular movements intact. Cardiac: Regular rate and rhythm, no murmurs/rubs/gallops. Respiratory: No increased work of breathing. Symmetrical chest rise. No respiratory distress. Abdomen: Soft, nontender, nondistended. Bowel sounds present. Uterus: Uterine fundus firm, non-tender, and palpable below umbilicus. Lower Extremities: No lower extremity edema or swelling. No deep calf pain. Srikanth's negative bilaterally. Psych: Euthymic affect. Mood and affect congruence. Regular speech rate and content. Results & Data <Clarissa Luna MD - Last Filed: 04/25/23 08:06> Vital Signs (Past 12 Hours) Vital Signs Temp Pulse Resp BP Pulse Ox O2 Del Method 04/25/23 02:46 36.5 C 79 18 117/80 99 Room Air 04/24/23 22:25 36.7 C 76 18 126/86 97 Room Air 04/24/23 19:30 36.7 C 81 18 115/76 99 Room Air Supervising Physician <Deedee Reyes MD, FACOG - Last Filed: 04/25/23 08:49> Co-Signing Physician Notes Resident Physician Supervision Note: I was present with Dr. Luna during the history and exam. I discussed the case with the resident and agree with the findings and plan as documented in the note. Any exceptions or clarifications are listed here: stable doing well. no persistent sesay or visual change. no ruq pain. eating, voiding, ambulating, nursing. abd soft ff 2 down nt, nt calves. ppd#1 history of mild preeclampsia. labs ok today. routine care. rhpos, ri. Documented By: Deedee Reyes MD, FACOG Resident Activity Tracking <Clarissa Luna MD - Last Filed: 04/25/23 08:06> Resident Involvement: Resident Care Provided Care Provided: OB Delivery
[2023-04-25] MEDS: DOCUSATE SODIUM 100 MG CAP PO SCH ×2 (07:50→19:51)
[2023-04-25] MEDS ORDERED: NON-FORMULARY MEDICATION (Prenat.Vits,Cal,Min-Iron-Folic tablet) PO SCH (09:00)
[2023-04-25] MEDS ORDERED: ASPIRIN 81 MG ECTAB PO SCH (09:00)
[2023-04-25] MEDS: PRENATAL VITAMIN 1 TAB PO SCH (11:04)
[2023-04-25] MEDS ORDERED: bisacodyL 5 MG TABEC PO SCH (20:00)
--- NOTE | 2023-04-26 09:09 | Obstetrical Progress Note ---
Date of Service April 26, 2023 Assessment & Plan (1) Encounter for assessment: Day 2 status post vaginal delivery. Patient doing well and stable for discharge. Has been normotensive visit type: routine follow-up Qualified Code(s): Z39.2 - Encounter for routine follow-up Subjective Ambulation: ambulating normally Voiding: no voiding problems Passing Gas:: Yes Diet Tolerance:: regular diet Lochia:: Moderate Feeding Type:: breast feeding No calf tenderness Physical Exam breast-feeding at time of exam Constitutional WD/WN, vitals as above Respiratory normal respiratory effort; no respiratory distress and no labored breathing Results & Data Vital Signs (Past 12 Hours) Vital Signs Temp Pulse Resp BP Pulse Ox O2 Del Method 04/26/23 07:25 36.5 C 93 H 18 124/83 98 Room Air 04/26/23 00:14 36.5 C 74 18 120/80 98 Room Air
[2023-04-26] MEDS: PRENATAL VITAMIN 1 TAB PO SCH (09:34)
[2023-04-26] MEDS: IBUPROFEN 600 MG TAB PO PRN (09:34)
[2023-04-26] MEDS: DOCUSATE SODIUM 100 MG CAP PO SCH (09:35)
== END 2023-04-26 11:00 | disposition home or self-care (01) | DRG 807 ==
LOC: OPB 10:07 → 4S1 10:09 → 4E2 04-24 15:01